=== PATIENT | female | born 1940 | race Caucasian/White ===

== ENCOUNTER 2018-07-14 13:21 | Inpatient (IN) ==
[2018-07-14 14:01] LABS: Basophils # (auto) 0.02 K/uL (0-0.2); Basophils % (auto) 0.3 %; Eosinophils # (auto) 0.03 K/uL (0-0.5); Eosinophils % (auto) 0.4 %; Hematocrit (blood only) 40.7 % (37-47); Hemoglobin 13.3 g/dL (12.0-16.0); Immature Granulocytes # (auto) 0.04 K/uL (0.00-0.02); Immature Granulocytes % (auto) 0.5 %; Lymphocytes # (auto) 0.49 K/uL (1.2-3.4); Lymphocytes % (auto) 6.1 %; Mean Corpuscular Hgb Conc 32.7 g/dL (32-36); Mean Corpuscular Volume 101.2 fL (80-100); Mean Platelet Volume 9.9 fL (7.4-10.4); Monocytes # (auto) 0.72 K/uL (0.11-0.59); Neutrophils # (auto) 6.68 K/uL (1.4-6.5); Neutrophils % (auto) 83.7 %; Platelet Count 133 K/uL (130-400); RDW Coefficient of Variation 13.8 % (11.5-14.5); RDW Standard Deviation 50.6 fL (36.4-46.3); Red Blood Count 4.02 M/uL (4.2-5.4); White Blood Count 7.98 K/uL (4.8-10.8)
[2018-07-14 14:11] LABS: Albumin Level 3.5 gm/dl (3.4-5.0); BUN Creatinine Ratio 28.7 (10-20); Calcium 8.7 mg/dl (8.5-10.1); Creatinine Clr Calc Pharmacy 122.5 ml/min
[2018-07-14 14:16] LABS: Bilirubin,Total 0.7 mg/dl (0.1-1); Globulin 3.4 gm/dl (2.5-4.0); Total Protein 6.9 gm/dl (6.4-8.2); Troponin I 0.024 ng/ml (0-0.045)
[2018-07-14 14:23] LABS: INR 1.1 (0.9-1.1); Partial Thromboplastin Time 25.9 Seconds (21.0-31.0); Prothrombin Time 10.9 Seconds (9.0-12.0)
--- NOTE | 2018-07-14 14:26 | XRay Report ---
XR chest 1V portable CLINICAL HISTORY: Shortness of breath COMPARISON STUDY: No previous studies for comparison. FINDINGS: The heart is mildly enlarged. There is aortic tortuosity/ectasia. There is asymmetric inter stitial thickening left greater than right. The findings likely represent either asymmetric edema, or a left lung interstitial inflammatory process. Clinical and radiographic follow-up is recommended.[ IMPRESSION: Asymmetric interstitial thickening left greater than right, likely representing either as ymmetric edema or a left lung interstitial inflammatory process. Clinical and radiographic follow-up is recommended. Electronically signed by: Cresencio Baca M.D. 07/14/2018 2:24 PM
[2018-07-14] MEDS ORDERED: SODIUM CHLORIDE 0.9% 1000ML 1,000 ML IV STA (15:01)
[2018-07-14] MEDS ORDERED: methylPREDNISolone 125 MG/2 ML VIAL IV STA (15:01)
[2018-07-14] MEDS ORDERED: ALBUT/IPRATROP 3MG/0.5MG NEB 3 ML VIAL INH STA (15:01)
[2018-07-14] MEDS ORDERED: LEVOFLOXACIN/D5W 750 MG/150 ML BAG IV STA (15:03)
[2018-07-14] MEDS ORDERED: SODIUM CHLORIDE 0.9% 500 ML IV SCH (15:15)
--- NOTE | 2018-07-14 16:48 | History & Physical Report ---
Addendum entered and electronically signed by HINA Pratt 07/14/18 18:12 : Addendum (Blank) Addendum July 14, 2018 18:11 Patient is a DNR as per my discussion with her. Original Note: Date of Service July 14, 2018 Assessment & Plan (1) Acute on chronic respiratory failure with hypoxia: -Admit to [facility] with telemetry -Patient presenting with 5 weeks of worsening cough and shortness of breath -Upon arrival to the ED, patient was hypoxic on 87% on chronic 2 L -improved with neb and increasing oxygen to 4 L -History of chronic hypoxic respiratory failure on 2 L of oxygen -patient follows with [facility] and etiology of hypoxia is unknown despite extensive workup -CXR today shows interstitial thickening - ? Pneumonitis versus bronchitis -Afebrile, no leukocytosis -S/P neb, Solu-Medrol 125 mg IV, Levaquin 750 mg IV -will continue with [id number] nebulizers, prednisone 40 mg p.o. daily x 5 days, Levaquin 750 mg IV -Gentle IVF -Sputum culture, flutter valve -Low threshold for CT chest and pulmonary consult (2) Diarrhea: -No abdominal pain -Check C. difficile and stool culture (3) Paroxysmal atrial tachycardia: -Rate controlled on diltiazem and metoprolol, both will be continued (4) Hypertension: -BP mildly elevated however patient not take her medications today -Continue diltiazem and metoprolol at home doses and make adjustments as needed (5) Rheumatoid arthritis: -Continue methotrexate and leucovorin (6) Dyslipidemia: -Continue statin (7) GERD (gastroesophageal reflux disease): -Continue PPI (8) DVT prophylaxis: -SQ Lovenox History of Present Illness Chief Complaint: Shortness of Breath Primary Care Provider: Zafar Pearson DO 78-year-old female who presents the ED with chief complaint shortness of breath. Patient reports she was treated for bronchitis before [facility] with antibiotics and steroids. She reports that when she completed those medicines, her symptoms quickly returned and have been progressively getting worse. She reports a productive cough for green/yellow sputum. Shortness of breath has been progressively getting worse to the point where she is short of breath at rest. She denies fevers and chills. She reports that she developed diarrhea last evening. No bright red bleeding per rectum or dark tarry stools. She denies abdominal pain, nausea, vomiting. She reports some midsternal chest pain last evening that is associated with coughing. No exertional chest pain or chest pain at rest. She reports chronic lower extremity edema which is unchanged from baseline. She denies lightheadedness, dizziness, diaphoresis, syncopal events. She has chronic urinary frequency which is unchanged from baseline. In the ED, patient was found to be hypoxic on her chronic 2 L of oxygen 87%. This improved with nebulizer treatment and increasing oxygen to 4 L via nasal cannula. Patient was also given Solu-Medrol 125 mg IV and IV Levaquin. CXR shows interstitial thickening. Allergies Allergy/AdvReac Type Severity Reaction Status Date / Time prochlorperazine Allergy Intermediate HIVES/RASH. Verified 07/14/18 14:18 morphine Allergy Mild Verified 07/14/18 14:18 grass pollen-perennial rye, Allergy Unknown HAY FEVER Verified 07/14/18 14:18 standar tetanus toxoid, adsorbed Allergy Unknown Verified 07/14/18 14:18 Home Medications Home Medications Medication Instructions Recorded Confirmed Type Lactobac #2-Bifido #1-S. therm 1 cap PO DAILY 07/14/18 07/14/18 History [VSL#3] acetaminophen [Tylenol Extra 500 mg PO Q6H PRN 07/14/18 07/14/18 History Strength] albuterol sulfate [Ventolin HFA] 2 puff INHALATION Q6H PRN 07/14/18 07/14/18 History ascorbic acid (vitamin C) [Vitamin 500 mg PO DAILY 07/14/18 07/14/18 History C] atorvastatin 20 mg PO HS 07/14/18 07/14/18 History calcium carbonate-vitamin D3 1 tab PO BID 07/14/18 07/14/18 History [Caltrate 600 + D] dicyclomine 20 mg PO TID 07/14/18 07/14/18 History diltiazem HCl 120 mg PO QAM 07/14/18 07/14/18 History fexofenadine [Angelica Allergy] 180 mg PO DAILY 07/14/18 07/14/18 History folic acid 3 tabs PO DAILY 07/14/18 07/14/18 History furosemide 40 mg PO DAILY PRN 07/14/18 07/14/18 History glucosamine sulfate [Glucosamine] 500 mg PO BID 07/14/18 07/14/18 History hydrocodone-acetaminophen 1 - 2 tabs PO Q6H PRN 07/14/18 07/14/18 History leucovorin calcium 5 mg PO WK 07/14/18 07/14/18 History methotrexate sodium 10 mg PO WK 07/14/18 07/14/18 History metoprolol succinate 50 mg PO BID 07/14/18 07/14/18 History montelukast 10 mg PO HS 07/14/18 07/14/18 History multivitamin 1 tab PO QAM 07/14/18 07/14/18 History omeprazole 40 mg PO QAM 07/14/18 07/14/18 History propylene glycol [Systane Balance] 1 drp OPHTHALMIC (EYE) Q6H PRN 07/14/1807/14 History vitamin E 400 unit PO DAILY 07/14/18 07/14/18 History Past Med/Surg History Medical History Chronic respiratory failure with hypoxia (Chronic) Paroxysmal atrial tachycardia (Chronic) Osteoporosis (Chronic) IBS (irritable bowel syndrome) (Chronic) Dyslipidemia (Chronic) Rheumatoid arthritis (Chronic) GERD (gastroesophageal reflux disease) (Chronic) Osteoarthritis (Chronic) Hypertension (Chronic) Surgical History History of tonsillectomy (Chronic) S/P ANIKA-BSO (Chronic) History of total left knee replacement (Chronic) History of total right knee replacement (Chronic) Social History Current Living Situation: Alone Other Information That Helps Us Care for You: No Feels Safe at Home: Yes Safety Concerns: Feels Safe At This Time Smoking Status: Never smoker Do You Dip or Chew Tobacco: No Hx Alcohol Use: No Hx Substance Use: No Beliefs That Will Affect Care: None Communication Ability: Effective Dental Hygiene Professor Required: No Review of Systems ROS per HPI, all other systems reviewed and negative Physical Exam 2 Vital Signs (Past 24 Hours): Last Vital Signs Temp 36.9 C 07/14/18 13:27 Pulse 86 07/14/18 15:37 Resp 24 07/14/18 15:37 BP 163/70 H 07/14/18 15:37 Pulse Ox 96 07/14/18 15:37 Constitutional: WD/WN, vitals as above no acute distress Eyes: PERRL, conjunctivae normal, anicteric sclerae ENMT: external ear and nose normal, oropharynx normal Respiratory: normal respiratory effort; no respiratory distress Auscultation: + diminished lung sounds and + wheezes (Expiratory) Coarse breath sounds bilaterally Cardiovascular: Rate/Rhythm: regular rate and regular rhythm Vessels: normal peripheral pulses Extremities: + edema (+1-2 BLE) Gastrointestinal (Abdomen): normal bowel sounds, soft, nontender, no hepatosplenomegaly Musculoskeletal: no cyanosis or clubbing, extremities motor strength 5/5 Skin: no rashes, warm and dry Neurologic: PERRL, EOMI, accommodation nl, no face palsy, no dysarthria Psychiatric: A+Ox3, euthymic affect Results & Data Laboratory Results CXR IMPRESSION: Asymmetric interstitial thickening left greater than right, likely representing either asymmetric edema or a left lung interstitial inflammatory process. Clinical and radiographic follow-up is recommended. Supervising Physician Co-Signing Physician Notes Patient is not is an 78-year-old female with history of paroxysmal atrial tachycardia, IBS, dyslipidemia, rheumatoid arthritis, hypertension, chronic hypoxic respiratory failure on 2 L of supplemental oxygen and other problems presents with history of worsening cough with expectoration, dyspnea, generalized weakness and diarrhea. Patient recently completed antibiotic and steroid course without much help. Reports associated chest pain with cough. Chest x-ray showed asymmetric interstitial thickening left greater than right, likely representing either asymmetric edema or a left lung interstitial inflammatory process. She admits to missing her high blood pressure medications today. Denies any hemoptysis or blood in the stools. On exam patient is moderately built, no apparent distress, B/L rhonchi, decreased breath sounds, trace edema. Patient will be started on IV steroids, Abx, bronchodilators, Oxygen support as needed. Consider CT chest and Pulm consult if no improved. Check stool for C.diff. Resume HTN meds for better BP control. I personally reviewed the record. Patient is interviewed and examined at bedside. Patient's care is coordinated with Elizabeth Ewing [employer]. Please refer to the documentation above for details of patient's presentation and for discussion of other issues.
[2018-07-14] MEDS ORDERED: ACETAMINOPHEN 325 MG TAB PO PRN (18:11)
[2018-07-14 18:20] LABS: Influenza A virus by PCR Neg for Influ A (Neg); Influenza B virus by PCR Neg for Influ B (Neg)
[2018-07-14 18:46] LABS: Appearance Urine Clear (Clear); Bacteria Urine Automated Negative (Negative); Bilirubin Urine Negative (Negative); Cast Urine Automated 0 /lpf (0-5); Color Urine Yellow; Epithelial Cell Urine Auto 0-5 /lpf (0-5); Glucose Urine UA Negative (Negative); Ketones Urine Negative (Negative); Leukocyte Esterase Urine Negative (Negative); Nitrite Urine Negative (Negative); Protein Urine Negative (Negative); Specific Gravity Urine 1.005 (1.000-1.030); Urobilinogen Urine Negative (Negative); WBC Urine Automated 0 /hpf (0-5)
[2018-07-14] MEDS: SODIUM CHLORIDE 0.9% 1000ML 1,000 ML IV SCH (19:13)
[2018-07-14] MEDS ORDERED: XOPENEX/ATROVENT 1.25mg/0.5MG NEB COMBO NEB SCH (20:00)
[2018-07-14] MEDS: IPRATROPIUM BROMIDE NEB SOLN 0.02% 2.5 ML VIAL INH SCH (20:10)
[2018-07-14] MEDS: LEVALBUTEROL 1.25MG/0.5ML NEB INH SCH (20:11)
[2018-07-14] MEDS: dilTIAZem HCL 120 MG CAPCR PO SCH (20:37)
[2018-07-14] MEDS: ATORVASTATIN 20 MG TAB PO SCH (20:38)
[2018-07-14] MEDS: MONTELUKAST SODIUM 10 MG TABLET PO SCH (20:38)
[2018-07-14] MEDS: CALCIUM 600MG + VIT D 400 IU TAB PO SCH (20:38)
[2018-07-14] MEDS: DICYCLOMINE HCL 20 MG TAB PO SCH (20:38)
[2018-07-14] MEDS: ENOXAPARIN INJ 40 MG/0.4 ML SYR SQ SCH (20:38)
[2018-07-14] MEDS: METOPROLOL SUCC 50MG EXT REL TAB PO SCH (20:38)
[2018-07-14] MEDS ORDERED: NON-FORMULARY MEDICATION (Glucosamine Sulfate [Glucosamine] 500 MG) PO SCH (21:00)
--- NOTE | 2018-07-14 21:16 | Emergency Department Note ---
Entered by Karen Nam acting as a scribe for ED Provider Note CHIEF COMPLAINT: Shortness of Breath. HISTORY OF PRESENT ILLNESS: The patient is an 78 year old female who presents to the Emergency Room with complaints of worsening shortness of breath for the past 3 weeks. She states around , she was diagnosed with bronchitis. She was treated with antibiotics and Prednisone. Since then, her breathing has never fully returned to normal. She has a cough with "thick yellowish green colored sputum". She is on Oxygen at home and has had to increase to 2L NC. Albuterol has provided minimal relief. She admits to minimal chest pain last night but states it has resolved. She has also experienced diarrhea since last night. She has been nauseous and notes she hasn't eaten solid food in several days. She notes she is on daily Lasix. Pt denies LOC, headache, fevers, chills, diaphoresis, visual changes, neck pain , nausea, vomiting, abdominal pain, back pain, melena, hematochezia, urinary symptoms, numbness, weakness, lymphadenopathy, rash, or other complaints. REVIEW OF SYSTEMS: See HPI for pertinent positives and negatives. A total of ten systems were reviewed and were otherwise negative. PMHx/PSHx: HTN. SOCIAL HISTORY: Patient lives at home. PHYSICAL EXAM: GENERAL: Awake, alert, well-appearing, in no distress HENT: Normocephalic, atraumatic. Oropharynx unremarkable. EYES: Normal conjunctiva. Sclera non-icteric. NECK: Inspection normal. Non-tender. Supple. No nuchal rigidity. FROM. No masses. RESPIRATORY: Crackles on left side. Wheezes bilaterally. No rales. Normal respiratory effort. CARDIAC: Normal rate. Normal rhythm. No murmurs. No rubs. Extremities warm and well perfused. Pulses equal. No JVD. GI: Soft, non-distended. No tenderness to palpation. No rebound or guarding. No masses. RECTAL: Deferred. MUSCULOSKELETAL: Atraumatic. Chest examination reveals no tenderness. The back is symmetrical on inspection without obvious abnormality. There is no CVA tenderness to palpation. No joint edema. LOWER EXTREMITIES: Calves are equal size bilaterally and non-tender. Trace pedal edema. No discoloration. NEURO: Normal sensorium. No sensory or motor deficits noted. SKIN: No rash or jaundice noted. EMERGENCY DEPARTMENT COURSE: 1500: Past medical records reviewed. The patient was evaluated in room C1, and a complete history and physical examination were performed. 1516: I discussed the patients case with HINA Pratt, [facility] Hospitalist. The patient will be further evaluated. MEDICAL DECISION MAKING: Prior records/ancillary studies reviewed. Triage Nursing notes reviewed and agree them. The patient's history was concerning for shortness of breath. Differential diagnosis: Etiologies such as pneumonia, COPD, reactive airway disease, CHF, cardiac ischemia, pulmonary embolism, pneumothorax, musculoskeletal, infections, gastrointestinal, as well as others were entertained. Physical examination: As above. The patient was wheezing. She was requiring supplemental oxygen. ER treatment provided: DuoNeb IV Solu-Medrol IV Levaquin Supplemental oxygen Diagnostic interpretation by me: The electrocardiogram was negative for pathologic change. The labs revealed mild dehydration on chemistry panel. CBC negative. Troponin negative. Imaging studies: Chest x-ray as above. Consultation: A consultation was placed with the hospitalist. The case was discussed and diagnostics were reviewed. The patient was evaluated in the ER for further treatment. IMPRESSION: Shortness of Breath. Pneumonitis. Dehydration. PLAN: Being evaluated by hospitalist. The scribe's documentation has been prepared under my direction and personally reviewed by me in its entirety. I confirm that the note above accurately reflects all work, treatment, procedures, and medical decision making performed by me. 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) Social History Current Living Situation: Alone Other Information That Helps Us Care for You: No Feels Safe at Home: Yes Safety Concerns: Feels Safe At This Time Smoking Status: Never smoker Do You Dip or Chew Tobacco: No Hx Alcohol Use: No Hx Substance Use: No Beliefs That Will Affect Care: None Communication Ability: Effective Histotechnologist Required: No Results & Data Vital Signs Vital Signs - 24 hr 07/14/18 13:26 07/14/18 13:27 07/14/18 13:28 Temperature 36.9 C Temperature Source Oral Sepsis Recent Fever Within 48 Hours No Sepsis New/Unexplained Change in Mental Status No Sepsis Action Taken by Nursing No Action Required Pulse Rate 75 76 76 Pulse Rate [Finger] 76 Pulse Rhythm [Finger] Pulse Strength [Finger] Respiratory Rate 27 H 25 H 34 H Respiratory Effort / Characteristics Non-Labored Spontaneous Respiratory Depth Normal Respiratory Pattern Regular Blood Pressure 181/97 H 181/97 H Blood Pressure [Left Arm] Blood Pressure [Right Arm] 181/97 H Blood Pressure Mean 125 125 Blood Pressure Mean [Left Arm] Blood Pressure Mean [Right Arm] 125 Blood Pressure Position [Left Arm] Blood Pressure Position [Right Arm] Pulse Oximetry 95 87 L 93 Oxygen Delivery Method Nasal Cannula Oxygen Flow Rate 2 07/14/18 13:30 07/14/18 13:38 07/14/18 13:40 Temperature Temperature Source Sepsis Recent Fever Within 48 Hours Sepsis New/Unexplained Change in Mental Status Sepsis Action Taken by Nursing Pulse Rate 73 78 77 Pulse Rate [Finger] Pulse Rhythm [Finger] Pulse Strength [Finger] Respiratory Rate 29 H 22 17 Respiratory Effort / Characteristics Respiratory Depth Respiratory Pattern Blood Pressure 180/95 H Blood Pressure [Left Arm] Blood Pressure [Right Arm] Blood Pressure Mean 123 Blood Pressure Mean [Left Arm] Blood Pressure Mean [Right Arm] Blood Pressure Position [Left Arm] Blood Pressure Position [Right Arm] Pulse Oximetry 95 96 96 Oxygen Delivery Method Oxygen Flow Rate 07/14/18 13:50 07/14/18 14:00 07/14/18 14:01 Temperature Temperature Source Sepsis Recent Fever Within 48 Hours Sepsis New/Unexplained Change in Mental Status Sepsis Action Taken by Nursing Pulse Rate 75 73 71 Pulse Rate [Finger] Pulse Rhythm [Finger] Pulse Strength [Finger] Respiratory Rate 23 22 21 Respiratory Effort / Characteristics Respiratory Depth Respiratory Pattern Blood Pressure 173/99 H Blood Pressure [Left Arm] Blood Pressure [Right Arm] Blood Pressure Mean 123 Blood Pressure Mean [Left Arm] Blood Pressure Mean [Right Arm] Blood Pressure Position [Left Arm] Blood Pressure Position [Right Arm] Pulse Oximetry 96 96 96 Oxygen Delivery Method Oxygen Flow Rate 07/14/18 14:10 07/14/18 14:59 07/14/18 15:00 Temperature Temperature Source Sepsis Recent Fever Within 48 Hours Sepsis New/Unexplained Change in Mental Status Sepsis Action Taken by Nursing Pulse Rate 80 75 80 Pulse Rate [Finger] Pulse Rhythm [Finger] Pulse Strength [Finger] Respiratory Rate 27 H 35 H 31 H Respiratory Effort / Characteristics Respiratory Depth Respiratory Pattern Blood Pressure Blood Pressure [Left Arm] Blood Pressure [Right Arm] Blood Pressure Mean Blood Pressure Mean [Left Arm] Blood Pressure Mean [Right Arm] Blood Pressure Position [Left Arm] Blood Pressure Position [Right Arm] Pulse Oximetry 96 88 L 90 Oxygen Delivery Method Oxygen Flow Rate 07/14/18 15:01 07/14/18 15:10 07/14/18 15:20 Temperature Temperature Source Sepsis Recent Fever Within 48 Hours Sepsis New/Unexplained Change in Mental Status Sepsis Action Taken by Nursing Pulse Rate 76 81 75 Pulse Rate [Finger] Pulse Rhythm [Finger] Pulse Strength [Finger] Respiratory Rate 36 H 21 24 Respiratory Effort / Characteristics Respiratory Depth Respiratory Pattern Blood Pressure 178/87 H Blood Pressure [Left Arm] Blood Pressure [Right Arm] Blood Pressure Mean 117 Blood Pressure Mean [Left Arm] Blood Pressure Mean [Right Arm] Blood Pressure Position [Left Arm] Blood Pressure Position [Right Arm] Pulse Oximetry 95 94 94 Oxygen Delivery Method Oxygen Flow Rate 07/14/18 15:30 07/14/18 15:31 07/14/18 15:37 Temperature Temperature Source Sepsis Recent Fever Within 48 Hours Sepsis New/Unexplained Change in Mental Status Sepsis Action Taken by Nursing Pulse Rate 76 78 Pulse Rate [Finger] 86 Pulse Rhythm [Finger] Pulse Strength [Finger] Respiratory Rate 27 H 28 H 24 Respiratory Effort / Characteristics Respiratory Depth Respiratory Pattern Blood Pressure 163/70 H Blood Pressure [Left Arm] Blood Pressure [Right Arm] 163/70 H Blood Pressure Mean 101 Blood Pressure Mean [Left Arm] Blood Pressure Mean [Right Arm] 101 Blood Pressure Position [Left Arm] Blood Pressure Position [Right Arm] Pulse Oximetry 94 95 96 Oxygen Delivery Method Nasal Cannula Oxygen Flow Rate 4 07/14/18 15:40 07/14/18 15:50 07/14/18 15:56 Temperature Temperature Source Sepsis Recent Fever Within 48 Hours Sepsis New/Unexplained Change in Mental Status Sepsis Action Taken by Nursing Pulse Rate 82 83 Pulse Rate [Finger] Pulse Rhythm [Finger] Pulse Strength [Finger] Respiratory Rate 29 H 23 Respiratory Effort / Characteristics Spontaneous Short of Breath SOB on Exertion Respiratory Depth Normal Respiratory Pattern Regular Blood Pressure Blood Pressure [Left Arm] Blood Pressure [Right Arm] Blood Pressure Mean Blood Pressure Mean [Left Arm] Blood Pressure Mean [Right Arm] Blood Pressure Position [Left Arm] Blood Pressure Position [Right Arm] Pulse Oximetry 96 100 Oxygen Delivery Method Aerosol Mask Oxygen Flow Rate 07/14/18 16:00 07/14/18 16:01 07/14/18 16:10 Temperature Temperature Source Sepsis Recent Fever Within 48 Hours Sepsis New/Unexplained Change in Mental Status Sepsis Action Taken by Nursing Pulse Rate 92 H 89 95 H Pulse Rate [Finger] Pulse Rhythm [Finger] Pulse Strength [Finger] Respiratory Rate 19 16 26 H Respiratory Effort / Characteristics Respiratory Depth Respiratory Pattern Blood Pressure 183/110 H Blood Pressure [Left Arm] Blood Pressure [Right Arm] Blood Pressure Mean 134 Blood Pressure Mean [Left Arm] Blood Pressure Mean [Right Arm] Blood Pressure Position [Left Arm] Blood Pressure Position [Right Arm] Pulse Oximetry 99 100 89 L Oxygen Delivery Method Oxygen Flow Rate 07/14/18 16:20 07/14/18 16:30 07/14/18 16:31 Temperature Temperature Source Sepsis Recent Fever Within 48 Hours Sepsis New/Unexplained Change in Mental Status Sepsis Action Taken by Nursing Pulse Rate 91 H 84 82 Pulse Rate [Finger] Pulse Rhythm [Finger] Pulse Strength [Finger] Respiratory Rate 23 26 H 33 H Respiratory Effort / Characteristics Respiratory Depth Respiratory Pattern Blood Pressure 160/84 H Blood Pressure [Left Arm] Blood Pressure [Right Arm] Blood Pressure Mean 109 Blood Pressure Mean [Left Arm] Blood Pressure Mean [Right Arm] Blood Pressure Position [Left Arm] Blood Pressure Position [Right Arm] Pulse Oximetry 93 73 L 95 Oxygen Delivery Method Oxygen Flow Rate 07/14/18 16:40 07/14/18 16:50 07/14/18 17:00 Temperature Temperature Source Sepsis Recent Fever Within 48 Hours Sepsis New/Unexplained Change in Mental Status Sepsis Action Taken by Nursing Pulse Rate 92 H 87 Pulse Rate [Finger] Pulse Rhythm [Finger] Pulse Strength [Finger] Respiratory Rate 18 25 H Respiratory Effort / Characteristics Respiratory Depth Respiratory Pattern Blood Pressure Blood Pressure [Left Arm] Blood Pressure [Right Arm] Blood Pressure Mean Blood Pressure Mean [Left Arm] Blood Pressure Mean [Right Arm] Blood Pressure Position [Left Arm] Blood Pressure Position [Right Arm] Pulse Oximetry 92 94 94 Oxygen Delivery Method Oxygen Flow Rate 07/14/18 17:10 07/14/18 17:20 07/14/18 17:23 Temperature Temperature Source Sepsis Recent Fever Within 48 Hours Sepsis New/Unexplained Change in Mental Status Sepsis Action Taken by Nursing Pulse Rate 90 84 84 Pulse Rate [Finger] Pulse Rhythm [Finger] Pulse Strength [Finger] Respiratory Rate 18 28 H 28 H Respiratory Effort / Characteristics Respiratory Depth Respiratory Pattern Blood Pressure Blood Pressure [Left Arm] Blood Pressure [Right Arm] Blood Pressure Mean Blood Pressure Mean [Left Arm] Blood Pressure Mean [Right Arm] Blood Pressure Position [Left Arm] Blood Pressure Position [Right Arm] Pulse Oximetry 94 92 92 Oxygen Delivery Method Nasal Cannula Oxygen Flow Rate 4 07/14/18 18:11 07/14/18 19:10 07/14/18 20:11 Temperature 36.6 C 36.6 C Temperature Source Oral Oral Sepsis Recent Fever Within 48 Hours Sepsis New/Unexplained Change in Mental Status Sepsis Action Taken by Nursing Pulse Rate Pulse Rate [Finger] 87 86 84 Pulse Rhythm [Finger] Regular Pulse Strength [Finger] Respiratory Rate 24 20 18 Respiratory Effort / Characteristics Spontaneous Accessory Muscle Use Labored Short of Breath SOB on Exertion Non-Labored Spontaneous Respiratory Depth Respiratory Pattern Regular Blood Pressure Blood Pressure [Left Arm] 187/93 H Blood Pressure [Right Arm] 158/78 H Blood Pressure Mean Blood Pressure Mean [Left Arm] 124 Blood Pressure Mean [Right Arm] 104 Blood Pressure Position [Left Arm] Lying Blood Pressure Position [Right Arm] Lying Pulse Oximetry 92 91 94 Oxygen Delivery Method Nasal Cannula Nasal Cannula Nasal Cannula Oxygen Flow Rate 4 4 4 07/14/18 20:31 Temperature Temperature Source Sepsis Recent Fever Within 48 Hours Sepsis New/Unexplained Change in Mental Status Sepsis Action Taken by Nursing Pulse Rate Pulse Rate [Finger] 108 H Pulse Rhythm [Finger] Regular Pulse Strength [Finger] Normal Respiratory Rate 20 Respiratory Effort / Characteristics Non-Labored Respiratory Depth Normal Respiratory Pattern Regular Blood Pressure Blood Pressure [Left Arm] Blood Pressure [Right Arm] 123/89 Blood Pressure Mean Blood Pressure Mean [Left Arm] Blood Pressure Mean [Right Arm] 100 Blood Pressure Position [Left Arm] Blood Pressure Position [Right Arm] Sitting Pulse Oximetry 93 Oxygen Delivery Method Nasal Cannula Oxygen Flow Rate 4 Home Medications Current Medication List: was personally reviewed by me Laboratory Data Attestation: I reviewed the patient's lab results. Result diagrams: 07/14/18 13:30 07/14/18 13:30 Lab Results 07/14/18 07/14/18 07/14/18 Range/Units 13:30 13:30 13:30 WBC 7.98 (4.8-10.8) K/uL RBC 4.02 L (4.2-5.4) M/uL Hgb 13.3 (12.0-16.0) g/dL Hct 40.7 (37-47) % MCV 101.2 H (80-100) fL MCH 33.1 (25-34) pg MCHC 32.7 (32-36) g/dL RDW Std Deviation 50.6 H (36.4-46.3) fL RDW Coeff of Velia 13.8 (11.5-14.5) % Plt Count 133 (130-400) K/uL MPV 9.9 (7.4-10.4) fL Immature Gran % (Auto) 0.5 % Neut % (Auto) 83.7 % Lymph % (Auto) 6.1 % [place] % (Auto) 9.0 % Eos % (Auto) 0.4 % Baso % (Auto) 0.3 % Immature Gran # (Auto) 0.04 H (0.00-0.02) K/uL Neut # (Auto) 6.68 H (1.4-6.5) K/uL Lymph # (Auto) 0.49 L (1.2-3.4) K/uL [place] # (Auto) 0.72 H (0.11-0.59) K/uL Eos # (Auto) 0.03 (0-0.5) K/uL Baso # (Auto) 0.02 (0-0.2) K/uL PT 10.9 (9.0-12.0) Seconds INR 1.1 (0.9-1.1) APTT 25.9 (21.0-31.0) Seconds PTT Ratio 1.0 Sodium 133 L (136-145) mmol/L Potassium 4.0 (3.5-5.1) mmol/L Chloride 92 L (98-107) mmol/L Carbon Dioxide 33 H (21-32) mmol/L Anion Gap 8.0 (3-11) BUN 11 (7-18) mg/dl Creatinine 0.38 L (0.6-1.2) mg/dl Est Cr Clr Drug Dosing 122.5 ml/min Est GFR ( Amer) 116.0 Est GFR (Non-Af Amer) 100.0 BUN/Creatinine Ratio 28.7 H (10-20) Glucose 92 (70-99) mg/dl Calcium 8.7 (8.5-10.1) mg/dl Total Bilirubin 0.7 (0.1-1) mg/dl AST 24 (15-37) U/L ALT 24 (12-78) U/L Alkaline Phosphatase 71 (45-117) U/L Troponin I 0.024 (0-0.045) ng/ml Total Protein 6.9 (6.4-8.2) gm/dl Albumin 3.5 (3.4-5.0) gm/dl Globulin 3.4 (2.5-4.0) gm/dl Albumin/Globulin Ratio 1.0 (0.9-2) Urine Color Urine Appearance (Clear) Urine pH (4.5-7.5) Ur Specific [place] (1.000-1.030) Urine Protein (Negative) Urine Glucose (UA) (Negative) Urine Ketones (Negative) Urine Blood (Negative) Urine Nitrite (Negative) Urine Bilirubin (Negative) Urine Urobilinogen (Negative) Ur Leukocyte Esterase (Negative) Urine WBC (Auto) (0-5) /hpf Urine RBC (Auto) (0-4) /hpf U Hyaline Cast (Auto) (0-5) /lpf U Epithel Cells (Auto) (0-5) /lpf Urine Bacteria (Auto) (Negative) Influenza Type A (PCR) (Neg) Influenza Type B (PCR) (Neg) 07/14/18 07/14/18 Range/Units 17:30 18:15 WBC (4.8-10.8) K/uL RBC (4.2-5.4) M/uL Hgb (12.0-16.0) g/dL Hct (37-47) % MCV (80-100) fL MCH (25-34) pg MCHC (32-36) g/dL RDW Std Deviation (36.4-46.3) fL RDW Coeff of Velia (11.5-14.5) % Plt Count (130-400) K/uL MPV (7.4-10.4) fL Immature Gran % (Auto) % Neut % (Auto) % Lymph % (Auto) % [place] % (Auto) % Eos % (Auto) % Baso % (Auto) % Immature Gran # (Auto) (0.00-0.02) K/uL Neut # (Auto) (1.4-6.5) K/uL Lymph # (Auto) (1.2-3.4) K/uL [place] # (Auto) (0.11-0.59) K/uL Eos # (Auto) (0-0.5) K/uL Baso # (Auto) (0-0.2) K/uL PT (9.0-12.0) Seconds INR (0.9-1.1) APTT (21.0-31.0) Seconds PTT Ratio Sodium (136-145) mmol/L Potassium (3.5-5.1) mmol/L Chloride (98-107) mmol/L Carbon Dioxide (21-32) mmol/L Anion Gap (3-11) BUN (7-18) mg/dl Creatinine (0.6-1.2) mg/dl Est Cr Clr Drug Dosing ml/min Est GFR ( Amer) Est GFR (Non-Af Amer) BUN/Creatinine Ratio (10-20) Glucose (70-99) mg/dl Calcium (8.5-10.1) mg/dl Total Bilirubin (0.1-1) mg/dl AST (15-37) U/L ALT (12-78) U/L Alkaline Phosphatase (45-117) U/L Troponin I (0-0.045) ng/ml Total Protein (6.4-8.2) gm/dl Albumin (3.4-5.0) gm/dl Globulin (2.5-4.0) gm/dl Albumin/Globulin Ratio (0.9-2) Urine Color Yellow Urine Appearance Clear (Clear) Urine pH 7.0 (4.5-7.5) Ur Specific [place] 1.005 (1.000-1.030) Urine Protein Negative (Negative) Urine Glucose (UA) Negative (Negative) Urine Ketones Negative (Negative) Urine Blood Trace H (Negative) Urine Nitrite Negative (Negative) Urine Bilirubin Negative (Negative) Urine Urobilinogen Negative (Negative) Ur Leukocyte Esterase Negative (Negative) Urine WBC (Auto) 0 (0-5) /hpf Urine RBC (Auto) 0-4 (0-4) /hpf U Hyaline Cast (Auto) 0 (0-5) /lpf U Epithel Cells (Auto) 0-5 (0-5) /lpf Urine Bacteria (Auto) Negative (Negative) Influenza Type A (PCR) Neg for Influ A (Neg) Influenza Type B (PCR) Neg for Influ B (Neg) Administered Medications Atorvastatin Calcium (Lipitor) 20 mg PO HS [facility] Stop: 08/13/18 20:59 Last Admin: 07/14/18 20:38 Dose: 20 mg Dicyclomine HCl (Bentyl) 20 mg PO TID [facility] Stop: 08/13/18 20:59 Last Admin: 07/14/18 20:38 Dose: 20 mg Diltiazem HCl (Cardizem Cd) 120 mg PO QAM [facility] Stop: 08/13/18 19:59 Last Admin: 07/14/18 20:37 Dose: 120 mg Enoxaparin Sodium (Lovenox) 40 mg SQ Q24H [facility] Stop: 08/13/18 21:59 Last Admin: 07/14/18 20:38 Dose: 40 mg Sodium Chloride (Nss 1000ml) 1,000 mls @ 80 mls/hr IV .[id number] [facility] Stop: 08/13/18 18:59 Last Admin: 07/14/18 19:13 Dose: 80 mls/hr Ipratropium Kyburz (Atrovent 0.02% 0.5mg/2.5ml) 0.5 mg INH Q6R [facility] Stop: 08/13/18 19:59 Last Admin: 07/14/18 20:10 Dose: 0.5 mg Levalbuterol HCl (Xopenex 1.25mg/0.5ml Neb) 1.25 mg INH Q6R [facility] Stop: 08/13/18 19:59 Last Admin: 07/14/18 20:11 Dose: 1.25 mg Metoprolol Succinate (Toprol Xl) 50 mg PO BID [facility] Stop: 08/13/18 20:59 Last Admin: 07/14/18 20:38 Dose: 50 mg Montelukast Sodium (Singulair) 10 mg PO HS [facility] Stop: 08/13/18 20:59 Last Admin: 07/14/18 20:38 Dose: 10 mg Multivitamins/Minerals (Caltrate Plus) 1 tab PO BID [facility] Stop: 01/26/19 20:59 Last Admin: 07/14/18 20:38 Dose: 1 tab Discontinued Medications Albuterol (Duoneb) 3 ml INH NOW STA Stop: 07/14/18 15:02 Last Admin: 07/14/18 15:38 Dose: 3 ml Sodium Chloride (Nss) 500 mls @ 999 mls/hr IV .Q31M [facility] Stop: 07/14/18 15:45 Last Infusion: 07/14/18 16:12 Dose: Admin: 07/14/18 15:38 Dose: 999 mls/hr Levofloxacin/Dextrose (Levaquin/D5w) 750 mg in 150 mls @ 100 mls/hr IV NOW STA Stop: 07/14/18 16:32 Last Infusion: 07/14/18 17:12 Dose: 0 mls/hr Admin: 07/14/18 15:39 Dose: 100 mls/hr Methylprednisolone (Solumedrol) 125 mg IV NOW STA Stop: 07/14/18 15:02 Last Admin: 07/14/18 15:38 Dose: 125 mg ECG Data Attestation: I personally reviewed and interpreted this ECG as follows: Indication: SOB/dyspnea Rate (beats per minute): 74 Rhythm: normal sinus Findings: + other (Left anterior fasicular block); no PAC and no PVC Blood Pressure Blood Pressure Findings: Elevated blood pressure Blood Pressure Disposition: further management by hospitalist Discharge Plan Visit Data *Final* Discharge Date/Time: 07/14/18 17:23 Chief Complaint: Shortness of Breath/Dyspnea Stated Complaint: sob ED Provider: Luis David Discharge Problem: Shortness of breath, Pneumonitis, Dehydration Patient Disposition: Admitted As Inpatient Discharge Instructions Interventions: ED Discharge Assessment Last Done: 07/14/18 17:23 The scribe's documentation has been prepared under my direction and personally reviewed by me in its entirety. I confirm that the note above accurately reflects all work, treatment, procedures, and medical decision making performed by me.
[2018-07-14] MEDS: HYDROCODONE/ACETAMOPHEN 5/325MG TAB PO PRN (22:11)
[2018-07-15] MEDS: IPRATROPIUM BROMIDE NEB SOLN 0.02% 2.5 ML VIAL INH SCH ×4 (01:51→18:54)
[2018-07-15] MEDS: LEVALBUTEROL 1.25MG/0.5ML NEB INH SCH ×4 (01:51→18:54)
[2018-07-15 06:53] LABS: Hematocrit (blood only) 39.9 % (37-47); Mean Corpuscular Hgb Conc 32.6 g/dL (32-36); Mean Corpuscular Volume 103.4 fL (80-100); Mean Platelet Volume 9.7 fL (7.4-10.4); Platelet Count 111 K/uL (130-400); RDW Coefficient of Variation 14.1 % (11.5-14.5); RDW Standard Deviation 52.3 fL (36.4-46.3); Red Blood Count 3.86 M/uL (4.2-5.4); White Blood Count 5.65 K/uL (4.8-10.8)
[2018-07-15 07:32] LABS: BUN Creatinine Ratio 25.5 (10-20); Calcium 9.1 mg/dl (8.5-10.1); Creatinine Clr Calc Pharmacy 104.7 ml/min; Est GFR (African American) 111.3; Est GFR (Non-African American) 96.1; Potassium 3.9 mmol/L (3.5-5.1)
[2018-07-15] MEDS: FOLIC ACID 1 MG TAB PO SCH (08:32)
[2018-07-15] MEDS: DICYCLOMINE HCL 20 MG TAB PO SCH ×3 (08:32→20:34)
[2018-07-15] MEDS: PANTOprazole 40 MG TAB PO SCH (08:32)
[2018-07-15] MEDS: dilTIAZem HCL 120 MG CAPCR PO SCH (08:32)
[2018-07-15] MEDS: ASCORBIC ACID 500 MG TAB PO SCH (08:33)
[2018-07-15] MEDS: METOPROLOL SUCC 50MG EXT REL TAB PO SCH ×2 (08:33→20:33)
[2018-07-15] MEDS: CALCIUM 600MG + VIT D 400 IU TAB PO SCH ×2 (08:33→20:34)
[2018-07-15] MEDS: predniSONE 20 MG TAB PO SCH (08:34)
[2018-07-15] MEDS: SODIUM CHLORIDE 0.9% 1000ML 1,000 ML IV SCH ×2 (08:34→20:35)
[2018-07-15] MEDS: LACTOBACILLUS ACIDOPHILUS (FLORANEX) TAB PO SCH (08:34)
[2018-07-15] MEDS: MULTIVITAMIN TAB PO SCH (08:34)
[2018-07-15] MEDS: FEXOFENADINE HCL 180 MG TAB PO SCH (08:34)
[2018-07-15] MEDS: metHOTREXate sodium 2.5 MG TAB PO SCH (08:35)
[2018-07-15] MEDS: TOCOPHERYL, DL-ALPHA 400 UNITS CAP PO SCH (08:35)
[2018-07-15] MEDS: LEVOFLOXACIN/D5W 750 MG/150 ML BAG IV SCH (14:50)
[2018-07-15] MEDS: HYDROCODONE/ACETAMOPHEN 5/325MG TAB PO PRN ×2 (14:50→20:42)
[2018-07-15] MEDS ORDERED: metHOTREXate sodium 2.5 MG TAB PO ONE (18:42)
[2018-07-15] MEDS: ATORVASTATIN 20 MG TAB PO SCH (20:33)
[2018-07-15] MEDS: MONTELUKAST SODIUM 10 MG TABLET PO SCH (20:33)
--- NOTE | 2018-07-15 21:53 | Hospitalist Progress Note ---
Date of Service July 15, 2018 Assessment & Plan (1) Acute on chronic respiratory failure with hypoxia: Chronic hypoxic respiratory failure on home O2 at 2 L/min. Increasing dyspnea date of admission, requiring O2 @ 4 LPM. Apparent lower respiratory tract infection as discussed below. Continue supplemental oxygen, titrate as necessary. Review of clinic records regarding pulmonary evaluation. (2) Lower respiratory tract infection: Bronchitis versus pneumonia. Blood and sputum cultures pending. Clinically improved. Continue levofloxacin. Continue steroids and bronchodilators. (3) Hypertension: Continue metoprolol and diltiazem. (4) GERD (gastroesophageal reflux disease): Continue PPI. (5) DVT prophylaxis: SQ enoxaparin. Ambulate. (6) Discharge planning issues: Anticipated discharge to home. Internal Medicine follow-up with Dr. Pearson. Subjective Recheck for multiple problems. Patient was seen in her room around 1900. Feels a little better. Cough improved, less productive. No fever. Persistent wheezing. Oxygen titrated from 4 L/min to 2 L/min. No chest pain. No nausea or vomiting. No diarrhea. No dysuria. Physical Exam 2 Vital Signs (Past 24 Hours): Last Vital Signs Temp 36.7 C 07/15/18 19:13 Pulse 81 07/15/18 19:15 Resp 20 07/15/18 19:13 BP 145/81 H 07/15/18 19:13 Pulse Ox 92 07/15/18 19:13 Constitutional: no acute distress Respiratory: no respiratory distress Auscultation: + rhonchi and + wheezes Cardiovascular: Rate/Rhythm: regular rate and regular rhythm Heart Sounds: no gallop, no murmur and no cardiac rub Vessels: no JVD Extremities: no calf tenderness and no edema Gastrointestinal (Abdomen): normal bowel sounds, soft, nontender, no hepatosplenomegaly Skin: no rashes, warm and dry Psychiatric: Orientation: alert and oriented x 3 Results & Data Laboratory Results Short CBC 07/15/18 Range/Units 06:32 WBC 5.65 (4.8-10.8) K/uL Hgb 13.0 (12.0-16.0) g/dL Hct 39.9 (37-47) % Plt Count 111 L (130-400) K/uL BMP 07/15/18 06:32 Sodium 139 Potassium 3.9 Chloride 99 Carbon Dioxide 33 H BUN 11 Creatinine 0.43 L Glucose 110 H Calcium 9.1 _ (1) Hypertension Hypertension type: essential hypertension Qualified Code(s): I10 - Essential (primary) hypertension (2) GERD (gastroesophageal reflux disease) Esophagitis presence: without esophagitis Qualified Code(s): K21.9 - Gastro- esophageal reflux disease without esophagitis
[2018-07-15] MEDS: ENOXAPARIN INJ 40 MG/0.4 ML SYR SQ SCH (22:14)
[2018-07-16] MEDS: ZOLPIDEM TARTRATE 5 MG TAB PO PRN ×2 (01:09→23:21)
[2018-07-16] MEDS: IPRATROPIUM BROMIDE NEB SOLN 0.02% 2.5 ML VIAL INH SCH ×4 (01:46→19:19)
[2018-07-16] MEDS: LEVALBUTEROL 1.25MG/0.5ML NEB INH SCH ×4 (01:46→19:19)
[2018-07-16] MEDS: SODIUM CHLORIDE 0.9% 1000ML 1,000 ML IV SCH (07:51)
[2018-07-16] MEDS: predniSONE 20 MG TAB PO SCH (07:51)
[2018-07-16] MEDS: FEXOFENADINE HCL 180 MG TAB PO SCH (07:52)
[2018-07-16] MEDS: TOCOPHERYL, DL-ALPHA 400 UNITS CAP PO SCH (07:52)
[2018-07-16] MEDS: ASCORBIC ACID 500 MG TAB PO SCH (07:52)
[2018-07-16] MEDS: METOPROLOL SUCC 50MG EXT REL TAB PO SCH ×2 (07:52→21:24)
[2018-07-16] MEDS: DICYCLOMINE HCL 20 MG TAB PO SCH ×3 (07:52→21:23)
[2018-07-16] MEDS: PANTOprazole 40 MG TAB PO SCH (07:52)
[2018-07-16] MEDS: LACTOBACILLUS ACIDOPHILUS (FLORANEX) TAB PO SCH (07:52)
[2018-07-16] MEDS: dilTIAZem HCL 120 MG CAPCR PO SCH (07:52)
[2018-07-16] MEDS: CALCIUM 600MG + VIT D 400 IU TAB PO SCH ×2 (07:52→21:24)
[2018-07-16] MEDS: MULTIVITAMIN TAB PO SCH (07:52)
[2018-07-16] MEDS: FOLIC ACID 1 MG TAB PO SCH (07:53)
[2018-07-16] MEDS ORDERED: LEUCOVORIN CALCIUM 5 MG TAB PO SCH (09:00)
[2018-07-16] MEDS: LEVOFLOXACIN/D5W 750 MG/150 ML BAG IV SCH (14:30)
[2018-07-16] MEDS: HYDROCODONE/ACETAMOPHEN 5/325MG TAB PO PRN ×2 (17:45→23:21)
--- NOTE | 2018-07-16 19:05 | Hospitalist Progress Note ---
Date of Service July 16, 2018 Assessment & Plan (1) Acute on chronic respiratory failure with hypoxia: Chronic hypoxic respiratory failure on home O2 at 2 L/min. Increasing dyspnea date of admission, requiring O2 @ 4 LPM. Apparent lower respiratory tract infection as discussed below. Continue supplemental oxygen, titrate as necessary. Review of clinic records regarding pulmonary evaluation. (2) Lower respiratory tract infection: Bronchitis versus pneumonia. Blood and sputum cultures negative so far. Clinically improved. Continue levofloxacin. Continue steroids and bronchodilators. (3) Hypertension: Continue metoprolol and diltiazem. (4) GERD (gastroesophageal reflux disease): Continue PPI. (5) Neurological symptoms: Episode of confusion and difficulty speaking 2 weeks ago. Possible TIA. Consider hypoxia as underlying etiology (was not using portable O2). Check CT head, carotid duplex, echo. Monitor for arrhythmias. (6) DVT prophylaxis: SQ enoxaparin. Ambulate. (7) Discharge planning issues: Anticipated discharge to home. Internal Medicine follow-up with Dr. Pearson. Subjective Recheck for multiple problems. Patient was seen in her room around 1100. Feels a little better. No fever. Cough better. Persistent wheezing. Patient shared that she had an episode of confusion and apparent expressive aphasia about 2 weeks ago. No associated symptoms. She was having lunch with her sister. Was not wearing portable O2. [place] better after she rested and ate some lunch. Symptoms lasted for about 5 min. No recurrence. No chest pain. No nausea or vomiting. No diarrhea. No dysuria. Physical Exam 2 Vital Signs (Past 24 Hours): Last Vital Signs Temp 36.7 C 07/16/18 15:26 Pulse 81 07/16/18 16:00 Resp 20 07/16/18 15:26 BP 136/87 07/16/18 15:26 Pulse Ox 92 07/16/18 15:26 Constitutional: no acute distress Respiratory: no respiratory distress Auscultation: + rhonchi and + wheezes Cardiovascular: Rate/Rhythm: regular rate and regular rhythm Heart Sounds: no gallop, no murmur and no cardiac rub Vessels: no JVD Extremities: no calf tenderness and no edema Gastrointestinal (Abdomen): normal bowel sounds, soft, nontender, no hepatosplenomegaly Musculoskeletal: no cyanosis or clubbing, extremities motor strength 5/5 Skin: no rashes, warm and dry Neurologic: PERRL, EOMI, accommodation nl, no face palsy, no dysarthria Speech / Cognition: no expressive aphasia Psychiatric: Orientation: alert and oriented x 3 _ (1) Hypertension Hypertension type: essential hypertension Qualified Code(s): I10 - Essential (primary) hypertension (2) GERD (gastroesophageal reflux disease) Esophagitis presence: without esophagitis Qualified Code(s): K21.9 - Gastro- esophageal reflux disease without esophagitis
[2018-07-16] MEDS: MONTELUKAST SODIUM 10 MG TABLET PO SCH (21:24)
[2018-07-16] MEDS: ATORVASTATIN 20 MG TAB PO SCH (21:24)
[2018-07-16] MEDS: ENOXAPARIN INJ 40 MG/0.4 ML SYR SQ SCH (21:27)
[2018-07-17] MEDS: IPRATROPIUM BROMIDE NEB SOLN 0.02% 2.5 ML VIAL INH SCH ×4 (01:54→19:17)
[2018-07-17] MEDS: LEVALBUTEROL 1.25MG/0.5ML NEB INH SCH ×4 (01:54→19:17)
[2018-07-17 06:31] LABS: BUN Creatinine Ratio 30.4 (10-20); Calcium 8.3 mg/dl (8.5-10.1); Creatinine Clr Calc Pharmacy 87.9 ml/min; Est GFR (African American) 104.6; Est GFR (Non-African American) 90.2; Potassium 3.6 mmol/L (3.5-5.1)
[2018-07-17] MEDS: FEXOFENADINE HCL 180 MG TAB PO SCH (09:03)
[2018-07-17] MEDS: TOCOPHERYL, DL-ALPHA 400 UNITS CAP PO SCH (09:03)
[2018-07-17] MEDS: MULTIVITAMIN TAB PO SCH (09:03)
[2018-07-17] MEDS: CALCIUM 600MG + VIT D 400 IU TAB PO SCH ×2 (09:03→20:14)
[2018-07-17] MEDS: PANTOprazole 40 MG TAB PO SCH (09:03)
[2018-07-17] MEDS: LACTOBACILLUS ACIDOPHILUS (FLORANEX) TAB PO SCH (09:03)
[2018-07-17] MEDS: METOPROLOL SUCC 50MG EXT REL TAB PO SCH ×2 (09:03→20:14)
[2018-07-17] MEDS: predniSONE 20 MG TAB PO SCH (09:04)
[2018-07-17] MEDS: ASCORBIC ACID 500 MG TAB PO SCH (09:04)
[2018-07-17] MEDS: dilTIAZem HCL 120 MG CAPCR PO SCH (09:04)
[2018-07-17] MEDS: FOLIC ACID 1 MG TAB PO SCH (09:04)
[2018-07-17] MEDS: DICYCLOMINE HCL 20 MG TAB PO SCH ×3 (09:04→20:15)
[2018-07-17] MEDS: HYDROCODONE/ACETAMOPHEN 5/325MG TAB PO PRN ×3 (09:08→23:55)
--- NOTE | 2018-07-17 11:56 | CT Scan Report ---
CT head/brain wo con CLINICAL HISTORY: 78 years-old Female with abnormal speech, possible TIA. Acute strokelike symptoms TECHNIQUE: Multiple axial CT images of the head were obtained without contrast. A dose lowering tech nique was utilized adhering to the principles of ALARA. CT DOSE: 1354.05 mGy.cm COMPARISON: None. FINDINGS: Limited exam secondary to patient movement. No acute intracranial hemorrhage, midline shift, intracra nial mass, hydrocephalus, territorial ischemia or abnormal extra-axial collection. Moderate atrophy. Moderate to extensive white matter hypodensities are suggestive of chronic microvascular ischemic samantha nges. Senescent calcifications of the basal ganglia. Cerebral vascular calcifications noted. 3 mm hyp erdense focus noted in the region of the anterior limb left internal capsule, image 12 series 4. The calvarium is intact. Mastoid air cells and middle ear cavities are clear. Moderate mucosal thick ening of the ethmoid air cells. Hypoplasia of the frontal sinuses. Mild mucosal thickening of the rig ht maxillary sinus. Mild to moderate mucosal thickening of the left maxillary sinus with air-fluid le nolan compatible with acute disease. Soft tissues and orbits are unremarkable. IMPRESSION: 1. No acute intracranial hemorrhage, midline shift or territorial infarct. 2. 3 mm hypodense focus of the anterior limb left internal capsule suggests age-indeterminate lacunar infarction. 3. Atrophy with chronic microvascular ischemic changes. 4. Paranasal sinus disease as above. The above report was generated using voice recognition software. It may contain grammatical, syntax o r spelling errors. Electronically signed by: Gentry Singh M.D. 07/17/2018 11:55 AM
--- NOTE | 2018-07-17 12:27 | Ultrasound Report ---
US carotid doppler BI CLINICAL HISTORY: 78 years-old Female with abnormal speech, possible TIA. Acute strokelike symptoms COMPARISON: CT head of same day TECHNIQUE: Multiple real time sonographic images of the carotid bifurcations were obtained assessing teran scale, color Doppler and spectral wave form appearance FINDINGS: Limited study secondary to patient cooperation. RIGHT CAROTID: The peak systolic velocity within the proximal right ICA is measured at 135 cm/sec. The end diastolic velocity measured 35 cm/sec. The ICA to CCA ratio measured 1.6 which correlates wi th a stenosis of 50-69%. LEFT CAROTID: The peak systolic velocity within the left ICA is measured at 88 cm/sec. The end duggan tolic velocity measured 32 cm/sec. The ICA to CCA ratio measured 1.3 which correlates with a stenosis of 0-50%. There is normal antegrade vertebral flow bilaterally. Extensive calcified plaque formation about the bilateral carotid bulbs and proximal ICAs. IMPRESSION: 1. Extensive calcified plaque about the bilateral carotid bulbs and proximal internal carotid arteri es with peak systolic velocities correlating with 50-69% stenosis on the right and 0-50% stenosis on the left. 2. Normal antegrade vertebral flow bilaterally. The above report was generated using voice recognition software. It may contain grammatical, syntax o r spelling errors. Electronically signed by: Gentry Singh M.D. 07/17/2018 12:26 PM
[2018-07-17] MEDS: guaiFENesin SUGAR FREE 200 MG/10 ML UDC PO SCH ×3 (12:31→20:13)
[2018-07-17] MEDS ORDERED: MICONAZOLE NITRATE POWDER 43 GM EXT PRN (13:33)
[2018-07-17] MEDS: LEVOFLOXACIN/D5W 750 MG/150 ML BAG IV SCH (15:36)
--- NOTE | 2018-07-17 18:04 | Hospitalist Progress Note ---
Date of Service July 17, 2018 Assessment & Plan (1) Acute on chronic respiratory failure with hypoxia: Chronic hypoxic respiratory failure on home O2 at 2 L/min. Increasing dyspnea date of admission, requiring O2 @ 4 LPM. Apparent lower respiratory tract infection as discussed below. Continue supplemental oxygen, titrate as necessary. Review clinic records regarding pulmonary evaluation. (2) Lower respiratory tract infection: Bronchitis versus pneumonia. Blood and sputum cultures negative so far. Clinically improved. CT demonstrated maxillary sinusitis. Change antibiotic coverage to ampicillin / sulbactam to cover upper and lower respiratory tract better. Continue steroids and bronchodilators. (3) Hypertension: Continue metoprolol and diltiazem. (4) GERD (gastroesophageal reflux disease): Continue PPI. (5) Neurological symptoms: Episode of confusion and difficulty speaking 2 weeks ago. Possible TIA. Consider hypoxia as underlying etiology (was not using portable O2 at the time.) . 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 CT head- old lacunar stroke left internal capsule. Carotid duplex- bilateral plaque, 0-50% stenosis left ICA, 50-69% stenosis right ICA. Echo- pending. Start antiplatelet therapy; intolerant of aspirin due to GI upset, so will use clopidogrel. Already on atorvastatin with LDL = 60. Pt does not wish to consider vascular surgery consultation. (6) DVT prophylaxis: SQ enoxaparin. Ambulate. (7) Discharge planning issues: Anticipated discharge to home. Internal Medicine follow-up with Dr. Pearson. Subjective Recheck for multiple problems. Patient was seen in her room around 1100. Gradually improving. No fever. Cough better, but still productive. Persistent wheezing. No chest pain. No nausea or vomiting. No diarrhea. No dysuria. No neuro symptoms. Physical Exam 2 Vital Signs (Past 24 Hours): Last Vital Signs Temp 36.8 C 07/17/18 15:11 Pulse 66 07/17/18 16:00 Resp 20 07/17/18 15:11 BP 147/66 H 07/17/18 15:11 Pulse Ox 90 07/17/18 15:11 Constitutional: no acute distress Respiratory: no respiratory distress Auscultation: + rhonchi and + wheezes (improved) Cardiovascular: Rate/Rhythm: regular rate and regular rhythm Heart Sounds: no gallop, no murmur and no cardiac rub Vessels: no JVD Extremities: no calf tenderness and no edema Gastrointestinal (Abdomen): normal bowel sounds, soft, nontender, no hepatosplenomegaly Musculoskeletal: Extremities: no cyanosis Skin: no rashes, warm and dry Neurologic: PERRL, EOMI, accommodation nl, no face palsy, no dysarthria Speech / Cognition: no expressive aphasia Psychiatric: Orientation: alert and oriented x 3 _ (1) Hypertension Hypertension type: essential hypertension Qualified Code(s): I10 - Essential (primary) hypertension (2) GERD (gastroesophageal reflux disease) Esophagitis presence: without esophagitis Qualified Code(s): K21.9 - Gastro- esophageal reflux disease without esophagitis
[2018-07-17] MEDS ORDERED: SODIUM CHLORIDE 0.65% NA SOLN 45 ML (OCEAN) ONE (18:22)
[2018-07-17] MEDS: AMPICILLIN/SULBACTAM SOD 3,000 MG in 0.9 % SODIUM CHLORIDE 100 ML IV SCH ×2 (18:25→23:55)
[2018-07-17] MEDS: CLOPIDOGREL BISULFATE 75 MG TAB PO SCH (18:25)
[2018-07-17] MEDS: ATORVASTATIN 20 MG TAB PO SCH (20:14)
[2018-07-17] MEDS: MONTELUKAST SODIUM 10 MG TABLET PO SCH (20:15)
[2018-07-17] MEDS: ENOXAPARIN INJ 40 MG/0.4 ML SYR SQ SCH (20:15)
[2018-07-17] MEDS: ZOLPIDEM TARTRATE 5 MG TAB PO PRN (23:55)
[2018-07-18] MEDS: IPRATROPIUM BROMIDE NEB SOLN 0.02% 2.5 ML VIAL INH SCH ×4 (02:07→19:11)
[2018-07-18] MEDS: LEVALBUTEROL 1.25MG/0.5ML NEB INH SCH ×4 (02:07→19:11)
[2018-07-18] MEDS: AMPICILLIN/SULBACTAM SOD 3,000 MG in 0.9 % SODIUM CHLORIDE 100 ML IV SCH ×4 (06:01→23:26)
[2018-07-18 07:18] LABS: Hematocrit (blood only) 43.4 % (37-47); Mean Corpuscular Hgb Conc 32.3 g/dL (32-36); Mean Corpuscular Volume 103.8 fL (80-100); Mean Platelet Volume 9.7 fL (7.4-10.4); Platelet Count 131 K/uL (130-400); RDW Coefficient of Variation 14.1 % (11.5-14.5); RDW Standard Deviation 52.7 fL (36.4-46.3); Red Blood Count 4.18 M/uL (4.2-5.4); White Blood Count 7.03 K/uL (4.8-10.8)
[2018-07-18] MEDS: HYDROCODONE/ACETAMOPHEN 5/325MG TAB PO PRN ×2 (09:23→20:15)
[2018-07-18] MEDS: guaiFENesin SUGAR FREE 200 MG/10 ML UDC PO SCH ×4 (09:23→20:17)
[2018-07-18] MEDS: DICYCLOMINE HCL 20 MG TAB PO SCH ×3 (09:24→20:18)
[2018-07-18] MEDS: PANTOprazole 40 MG TAB PO SCH (09:25)
[2018-07-18] MEDS: CLOPIDOGREL BISULFATE 75 MG TAB PO SCH (09:25)
[2018-07-18] MEDS: FOLIC ACID 1 MG TAB PO SCH (09:26)
[2018-07-18] MEDS: CALCIUM 600MG + VIT D 400 IU TAB PO SCH ×2 (09:26→20:17)
[2018-07-18] MEDS: predniSONE 20 MG TAB PO SCH (09:27)
[2018-07-18] MEDS: TOCOPHERYL, DL-ALPHA 400 UNITS CAP PO SCH (09:27)
[2018-07-18] MEDS: MULTIVITAMIN TAB PO SCH (09:28)
[2018-07-18] MEDS: ASCORBIC ACID 500 MG TAB PO SCH (09:28)
[2018-07-18] MEDS: FEXOFENADINE HCL 180 MG TAB PO SCH (09:28)
[2018-07-18] MEDS: LACTOBACILLUS ACIDOPHILUS (FLORANEX) TAB PO SCH (09:28)
[2018-07-18] MEDS: dilTIAZem HCL 120 MG CAPCR PO SCH (09:28)
[2018-07-18] MEDS: METOPROLOL SUCC 50MG EXT REL TAB PO SCH ×2 (09:29→20:17)
[2018-07-18] MEDS ORDERED: COUGH DROP (SUGAR FREE) LOZ 24 LOZ/1 BOX BUCCAL ONE (09:31)
[2018-07-18] MEDS: ENOXAPARIN INJ 40 MG/0.4 ML SYR SQ SCH (20:16)
[2018-07-18] MEDS: ZOLPIDEM TARTRATE 5 MG TAB PO PRN (20:16)
[2018-07-18] MEDS: ATORVASTATIN 20 MG TAB PO SCH (20:18)
[2018-07-18] MEDS: MONTELUKAST SODIUM 10 MG TABLET PO SCH (20:18)
--- NOTE | 2018-07-18 21:21 | Hospitalist Progress Note ---
Date of Service July 18, 2018 Assessment & Plan (1) Acute on chronic respiratory failure with hypoxia: Chronic hypoxic respiratory failure on home O2 at 2 L/min. Increasing dyspnea and worsening hypoxia date of admission, requiring O2 @ 4 LPM. Apparent lower respiratory tract infection as discussed below. Continue supplemental oxygen, titrate as necessary. Review clinic records regarding pulmonary evaluation. (2) Lower respiratory tract infection: Bronchitis versus pneumonia. Blood and sputum cultures negative so far. Clinically improved. CT demonstrated maxillary sinusitis. Changed antibiotic coverage to ampicillin / sulbactam to cover upper and lower respiratory tract better. Continue steroids and bronchodilators. (3) Hypertension: Continue metoprolol and diltiazem. (4) GERD (gastroesophageal reflux disease): Continue PPI. (5) Neurological symptoms: Episode of confusion and difficulty speaking 2 weeks ago. Possible TIA. Consider hypoxia as underlying etiology (was not using portable O2 at the time.) . ekg monitor- NSR. CT head- old lacunar stroke left internal capsule. Carotid duplex- bilateral plaque, 0-50% stenosis left ICA, 50-69% stenosis right ICA. Echo- no cardiac thrombi, possible PFO. Started antiplatelet therapy with clopidogrel (intolerant of aspirin). Already on atorvastatin with LDL = 60. Pt does not wish to consider vascular surgery consultation. (6) DVT prophylaxis: SQ enoxaparin. Ambulate. (7) Discharge planning issues: Anticipated discharge to home. Internal Medicine follow-up with Dr. Pearson. Subjective Recheck for multiple problems. Patient was seen in her room around 1810. No fever. Cough better. Persistent wheezing. No chest pain. No nausea or vomiting. No diarrhea. No dysuria. No neuro symptoms. Physical Exam 2 Vital Signs (Past 24 Hours): Last Vital Signs Temp 36.4 C L 07/18/18 19:09 Pulse 83 07/18/18 19:11 Resp 16 07/18/18 19:11 BP 148/84 H 07/18/18 19:09 Pulse Ox 95 07/18/18 19:11 Constitutional: no acute distress Respiratory: no respiratory distress Auscultation: + rhonchi (scattered) and + wheezes (diffuse) Cardiovascular: Rate/Rhythm: regular rate and regular rhythm Heart Sounds: no gallop, no murmur and no cardiac rub Vessels: no JVD Extremities: + edema (trace pretibial); no calf tenderness Gastrointestinal (Abdomen): normal bowel sounds, soft, nontender, no hepatosplenomegaly Musculoskeletal: Extremities: no cyanosis Skin: no rashes, warm and dry Neurologic: PERRL, EOMI, accommodation nl, no face palsy, no dysarthria Speech / Cognition: no expressive aphasia Psychiatric: Orientation: alert and oriented x 3 Results & Data Laboratory Results Short CBC 07/18/18 Range/Units 07:00 WBC 7.03 (4.8-10.8) K/uL Hgb 14.0 (12.0-16.0) g/dL Hct 43.4 (37-47) % Plt Count 131 (130-400) K/uL _ (1) Hypertension Hypertension type: essential hypertension Qualified Code(s): I10 - Essential (primary) hypertension (2) GERD (gastroesophageal reflux disease) Esophagitis presence: without esophagitis Qualified Code(s): K21.9 - Gastro- esophageal reflux disease without esophagitis
[2018-07-19] MEDS: IPRATROPIUM BROMIDE NEB SOLN 0.02% 2.5 ML VIAL INH SCH ×4 (02:09→20:25)
[2018-07-19] MEDS: LEVALBUTEROL 1.25MG/0.5ML NEB INH SCH ×4 (02:09→20:26)
[2018-07-19] MEDS: AMPICILLIN/SULBACTAM SOD 3,000 MG in 0.9 % SODIUM CHLORIDE 100 ML IV SCH ×3 (05:34→17:45)
[2018-07-19 06:55] LABS: BUN Creatinine Ratio 35.1 (10-20); Calcium 8.5 mg/dl (8.5-10.1); Creatinine Clr Calc Pharmacy 91.9 ml/min; Est GFR (African American) 105.9; Est GFR (Non-African American) 91.4; Potassium 3.6 mmol/L (3.5-5.1)
[2018-07-19] MEDS: FOLIC ACID 1 MG TAB PO SCH (09:00)
[2018-07-19] MEDS: METOPROLOL SUCC 50MG EXT REL TAB PO SCH ×2 (09:00→21:00)
[2018-07-19] MEDS: ASCORBIC ACID 500 MG TAB PO SCH (09:00)
[2018-07-19] MEDS: predniSONE 20 MG TAB PO SCH (09:00)
[2018-07-19] MEDS: FEXOFENADINE HCL 180 MG TAB PO SCH (09:01)
[2018-07-19] MEDS: CALCIUM 600MG + VIT D 400 IU TAB PO SCH ×2 (09:01→20:59)
[2018-07-19] MEDS: CLOPIDOGREL BISULFATE 75 MG TAB PO SCH (09:01)
[2018-07-19] MEDS: PANTOprazole 40 MG TAB PO SCH (09:01)
[2018-07-19] MEDS: dilTIAZem HCL 120 MG CAPCR PO SCH (09:01)
[2018-07-19] MEDS: DICYCLOMINE HCL 20 MG TAB PO SCH ×3 (09:01→21:00)
[2018-07-19] MEDS: TOCOPHERYL, DL-ALPHA 400 UNITS CAP PO SCH (09:01)
[2018-07-19] MEDS: LACTOBACILLUS ACIDOPHILUS (FLORANEX) TAB PO SCH (09:02)
[2018-07-19] MEDS: MULTIVITAMIN TAB PO SCH (09:02)
[2018-07-19] MEDS: guaiFENesin SUGAR FREE 200 MG/10 ML UDC PO SCH ×4 (09:02→21:01)
[2018-07-19] MEDS: HYDROCODONE/ACETAMOPHEN 5/325MG TAB PO PRN ×2 (14:19→21:05)
[2018-07-19] MEDS: FUROSEMIDE 40 MG TAB PO SCH (17:44)
[2018-07-19] MEDS: ATORVASTATIN 20 MG TAB PO SCH (20:59)
[2018-07-19] MEDS: MONTELUKAST SODIUM 10 MG TABLET PO SCH (20:59)
[2018-07-19] MEDS: ENOXAPARIN INJ 40 MG/0.4 ML SYR SQ SCH (21:01)
--- NOTE | 2018-07-19 21:27 | Hospitalist Progress Note ---
Date of Service July 19, 2018 Assessment & Plan (1) Acute on chronic respiratory failure with hypoxia: Chronic hypoxic respiratory failure on home O2 at 2 L/min. Increasing dyspnea and worsening hypoxia date of admission, requiring O2 @ 4 LPM. Apparent lower respiratory tract infection as discussed below. Continue supplemental oxygen, titrate as necessary. Check 2-step pulse oximetry day of discharge to assess O2 needs. (2) Lower respiratory tract infection: Bronchitis versus pneumonia. Blood and sputum cultures negative so far. Clinically improved. CT demonstrated maxillary sinusitis. Changed antibiotic coverage to ampicillin / sulbactam to cover upper and lower respiratory tract better. Continue steroids and bronchodilators. (3) Hypertension: Continue metoprolol and diltiazem. (4) GERD (gastroesophageal reflux disease): Continue PPI. (5) Neurological symptoms: Episode of confusion and difficulty speaking 2 weeks ago. Possible TIA. Consider hypoxia as underlying etiology (was not using portable O2 at the time.) . 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 CT head- old lacunar stroke left internal capsule. Carotid duplex- bilateral plaque, 0-50% stenosis left ICA, 50-69% stenosis right ICA. Echo- no cardiac thrombi, possible PFO. Started antiplatelet therapy with clopidogrel (intolerant of aspirin). Already on atorvastatin with LDL = 60. Pt does not wish to consider vascular surgery consultation. (6) DVT prophylaxis: SQ enoxaparin. Ambulate. (7) Discharge planning issues: Anticipated discharge to home with services when medically stable. Need to pursue options for portable O2- current tank is too heavy for her to carry when she leaves the house. Internal Medicine follow-up with Dr. Pearson. Outpatient follow-up with Pulmonary Medicine. Subjective Recheck for multiple problems. Patient was seen in her room around 1020. No fever. Persistent cough. Persistent wheezing. No chest pain. No nausea or vomiting. No diarrhea. Chronic urinary urgency and frequency unchanged. No dysuria. No neuro symptoms. Physical Exam 2 Vital Signs (Past 24 Hours): Last Vital Signs Temp 36.7 C 07/19/18 19:40 Pulse 75 07/19/18 20:26 Resp 20 07/19/18 20:26 BP 147/86 H 07/19/18 19:40 Pulse Ox 98 07/19/18 20:26 Constitutional: no acute distress Respiratory: no respiratory distress Auscultation: + rhonchi (scattered) and + wheezes (diffuse) Cardiovascular: Rate/Rhythm: regular rate and regular rhythm Heart Sounds: no gallop, no murmur and no cardiac rub Vessels: no JVD Extremities: + edema (trace pretibial); no calf tenderness Gastrointestinal (Abdomen): normal bowel sounds, soft, nontender, no hepatosplenomegaly Musculoskeletal: Extremities: no cyanosis Skin: no rashes, warm and dry Neurologic: PERRL, EOMI, accommodation nl, no face palsy, no dysarthria Speech / Cognition: no expressive aphasia Psychiatric: Orientation: alert and oriented x 3 Results & Data Laboratory Results [facility] 07/19/18 05:50 Sodium 139 Potassium 3.6 Chloride 99 Carbon Dioxide 36 H BUN 17 Creatinine 0.50 L Glucose 86 Calcium 8.5 _ (1) Hypertension Hypertension type: essential hypertension Qualified Code(s): I10 - Essential (primary) hypertension (2) GERD (gastroesophageal reflux disease) Esophagitis presence: without esophagitis Qualified Code(s): K21.9 - Gastro- esophageal reflux disease without esophagitis
[2018-07-20] MEDS: AMPICILLIN/SULBACTAM SOD 3,000 MG in 0.9 % SODIUM CHLORIDE 100 ML IV SCH ×4 (00:12→17:40)
[2018-07-20] MEDS: ZOLPIDEM TARTRATE 5 MG TAB PO PRN ×2 (01:43→20:47)
[2018-07-20] MEDS: LEVALBUTEROL 1.25MG/0.5ML NEB INH SCH ×4 (01:59→19:22)
[2018-07-20] MEDS: IPRATROPIUM BROMIDE NEB SOLN 0.02% 2.5 ML VIAL INH SCH ×4 (01:59→19:26)
[2018-07-20 07:30] LABS: BUN Creatinine Ratio 33.3 (10-20); Calcium 8.5 mg/dl (8.5-10.1); Creatinine Clr Calc Pharmacy 90.1 ml/min; Est GFR (African American) 104.6; Est GFR (Non-African American) 90.2; Potassium 3.4 mmol/L (3.5-5.1)
[2018-07-20] MEDS: DICYCLOMINE HCL 20 MG TAB PO SCH ×3 (08:11→20:49)
[2018-07-20] MEDS: CLOPIDOGREL BISULFATE 75 MG TAB PO SCH (08:11)
[2018-07-20] MEDS: FOLIC ACID 1 MG TAB PO SCH (08:12)
[2018-07-20] MEDS: guaiFENesin SUGAR FREE 200 MG/10 ML UDC PO SCH ×4 (08:12→20:49)
[2018-07-20] MEDS: MULTIVITAMIN TAB PO SCH (08:12)
[2018-07-20] MEDS: METOPROLOL SUCC 50MG EXT REL TAB PO SCH ×2 (08:12→20:50)
[2018-07-20] MEDS: LACTOBACILLUS ACIDOPHILUS (FLORANEX) TAB PO SCH (08:12)
[2018-07-20] MEDS: PANTOprazole 40 MG TAB PO SCH (08:12)
[2018-07-20] MEDS: dilTIAZem HCL 120 MG CAPCR PO SCH (08:13)
[2018-07-20] MEDS: CALCIUM 600MG + VIT D 400 IU TAB PO SCH ×2 (08:13→20:49)
[2018-07-20] MEDS: ASCORBIC ACID 500 MG TAB PO SCH (08:13)
[2018-07-20] MEDS: FEXOFENADINE HCL 180 MG TAB PO SCH (08:13)
[2018-07-20] MEDS: TOCOPHERYL, DL-ALPHA 400 UNITS CAP PO SCH (08:13)
[2018-07-20] MEDS: FUROSEMIDE 40 MG TAB PO SCH (17:40)
[2018-07-20] MEDS ORDERED: POTASSIUM CHLORIDE 10 MEQ TABCR PO STA (18:23)
--- NOTE | 2018-07-20 18:40 | Hospitalist Progress Note ---
Date of Service July 20, 2018 Assessment & Plan (1) Acute on chronic respiratory failure with hypoxia: Chronic hypoxic respiratory failure on home O2 at 2 L/min. Pneumonia Vs Bronchitis CXR:Asymmetric interstitial thickening left greater than right, likely representing either asymmetric edema or a left lung interstitial inflammatory process Continue supplemental oxygen, titrate as able May need 2 step prior to discharge (2) Lower respiratory tract infection: Bronchitis Vs pneumonia. Blood/ sputum cultures: negative to date CT demonstrated maxillary sinusitis. Continue Unasyn Continue steroids and bronchodilators. (3) Hypertension: Continue metoprolol and diltiazem. (4) GERD (gastroesophageal reflux disease): Continue PPI. (5) Neurological symptoms: Episode of confusion and difficulty speaking 2 weeks ago. Possible TIA. Consider hypoxia as underlying etiology (was not using portable O2 at the time.) . 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 Carotid duplex- bilateral plaque, 0-50% stenosis left ICA, 50-69% stenosis right ICA. Echo reviewed . Started on clopidogrel (intolerant of aspirin). continue atorvastatin Pt does not wish to consider vascular surgery consultation. (6) DVT prophylaxis: SQ Lovenox (7) Discharge planning issues: Anticipated discharge to home with services when medically stable. Need to pursue options for portable O2 Internal Medicine follow-up with Dr. Pearson. Outpatient follow-up with Pulmonary Medicine. Subjective Patient is seen and examined at bedside Cough, dyspnea improving no other complaints Denies chest pain, nausea, abd pain Physical Exam 2 Vital Signs (Past 24 Hours): Last Vital Signs Temp 36.7 C 07/20/18 15:29 Pulse 82 07/20/18 15:29 Resp 18 07/20/18 15:29 BP 145/80 H 07/20/18 15:29 Pulse Ox 94 07/20/18 15:29 Physical Exam: Physical Exam: Vitals signs as noted above General Appearance:Moderately built and nourished, no apparent distress Head: normocephalic, Atraumatic Eyes: normal inspection, EOMI Neck: supple, Trachea midline Respiratory/Chest: Normal breath sounds, scattered rhonchi Cardiovascular: S1, S2, No murmur Abdomen/GI:Soft, Non tender, Bowel sounds present Extremities/Musculoskelatal:normal inspection, +1 edema Neurologic/Psych:AAOX3, grossly no focal neurological deficits Skin: normal color, warm Results & Data Laboratory Results [facility] 07/20/18 06:52 Sodium 139 Potassium 3.4 L Chloride 97 L Carbon Dioxide 39 H BUN 17 Creatinine 0.52 L Glucose 88 Calcium 8.5 _ (1) Hypertension Hypertension type: essential hypertension Qualified Code(s): I10 - Essential (primary) hypertension (2) GERD (gastroesophageal reflux disease) Esophagitis presence: without esophagitis Qualified Code(s): K21.9 - Gastro- esophageal reflux disease without esophagitis
[2018-07-20] MEDS: HYDROCODONE/ACETAMOPHEN 5/325MG TAB PO PRN (20:47)
[2018-07-20] MEDS: ATORVASTATIN 20 MG TAB PO SCH (20:49)
[2018-07-20] MEDS: ENOXAPARIN INJ 40 MG/0.4 ML SYR SQ SCH (20:50)
[2018-07-20] MEDS: MONTELUKAST SODIUM 10 MG TABLET PO SCH (20:51)
[2018-07-21] MEDS: AMPICILLIN/SULBACTAM SOD 3,000 MG in 0.9 % SODIUM CHLORIDE 100 ML IV SCH ×4 (00:25→17:29)
[2018-07-21] MEDS: LEVALBUTEROL 1.25MG/0.5ML NEB INH SCH ×4 (01:38→20:16)
[2018-07-21] MEDS: IPRATROPIUM BROMIDE NEB SOLN 0.02% 2.5 ML VIAL INH SCH ×4 (01:38→20:16)
[2018-07-21 07:41] LABS: BUN Creatinine Ratio 31.7 (10-20); Calcium 8.9 mg/dl (8.5-10.1); Creatinine Clr Calc Pharmacy 83.7 ml/min; Est GFR (African American) 102.1; Est GFR (Non-African American) 88.1; Potassium 4.1 mmol/L (3.5-5.1)
[2018-07-21] MEDS: dilTIAZem HCL 120 MG CAPCR PO SCH (08:09)
[2018-07-21] MEDS: guaiFENesin SUGAR FREE 200 MG/10 ML UDC PO SCH ×4 (08:09→21:46)
[2018-07-21] MEDS: FEXOFENADINE HCL 180 MG TAB PO SCH (08:09)
[2018-07-21] MEDS: TOCOPHERYL, DL-ALPHA 400 UNITS CAP PO SCH (08:09)
[2018-07-21] MEDS: FOLIC ACID 1 MG TAB PO SCH (08:10)
[2018-07-21] MEDS: LACTOBACILLUS ACIDOPHILUS (FLORANEX) TAB PO SCH (08:10)
[2018-07-21] MEDS: ASCORBIC ACID 500 MG TAB PO SCH (08:11)
[2018-07-21] MEDS: CALCIUM 600MG + VIT D 400 IU TAB PO SCH ×2 (08:11→21:45)
[2018-07-21] MEDS: CLOPIDOGREL BISULFATE 75 MG TAB PO SCH (08:11)
[2018-07-21] MEDS: DICYCLOMINE HCL 20 MG TAB PO SCH ×3 (08:11→21:45)
[2018-07-21] MEDS: PANTOprazole 40 MG TAB PO SCH (08:12)
[2018-07-21] MEDS: METOPROLOL SUCC 50MG EXT REL TAB PO SCH ×2 (08:12→21:45)
[2018-07-21] MEDS: MULTIVITAMIN TAB PO SCH (08:12)
[2018-07-21] MEDS: HYDROCODONE/ACETAMOPHEN 5/325MG TAB PO PRN ×2 (11:33→21:43)
[2018-07-21] MEDS: FUROSEMIDE 40 MG TAB PO SCH (17:20)
--- NOTE | 2018-07-21 19:18 | Hospitalist Progress Note ---
Date of Service July 21, 2018 Assessment & Plan (1) Acute on chronic respiratory failure with hypoxia: Chronic hypoxic respiratory failure on home O2 at 2 L/min. Pneumonia Vs Bronchitis CXR:Asymmetric interstitial thickening left greater than right, likely representing either asymmetric edema or a left lung interstitial inflammatory process Continue supplemental oxygen, titrate as able Continue current management (2) Lower respiratory tract infection: Bronchitis Vs pneumonia. Blood/ sputum cultures: negative to date CT demonstrated maxillary sinusitis. Continue Unasyn for now Continue bronchodilators. Plan to switch to Augmentin upon discharge (3) Hypertension: BP labile Continue metoprolol and diltiazem. (4) GERD (gastroesophageal reflux disease): Continue PPI. (5) Neurological symptoms: Episode of confusion and difficulty speaking 2 weeks ago. Possible TIA. Consider hypoxia as underlying etiology (was not using portable O2 at the time.) . 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 Carotid duplex- bilateral plaque, 0-50% stenosis left ICA, 50-69% stenosis right ICA. Echo reviewed . Started on clopidogrel (intolerant of aspirin). continue atorvastatin Pt does not wish to consider vascular surgery consultation. (6) DVT prophylaxis: SQ Lovenox (7) Discharge planning issues: Anticipated discharge to home with services when medically stable. Need to pursue options for portable O2 Internal Medicine follow-up with Dr. Pearson. Outpatient follow-up with Pulmonary Medicine. Subjective Patient is seen and examined at bedside continues to improve clinically No new complaints Cough, dyspnea improved Denies chest pain, nausea, abd pain Physical Exam 2 Vital Signs (Past 24 Hours): Last Vital Signs Temp 36.7 C 07/21/18 15:00 Pulse 79 07/21/18 16:15 Resp 20 07/21/18 15:00 BP 124/76 07/21/18 15:00 Pulse Ox 91 07/21/18 15:00 Physical Exam: Physical Exam: Vitals signs as noted above General Appearance:Moderately built and nourished, no apparent distress Head: normocephalic, Atraumatic Eyes: normal inspection, EOMI Neck: supple, Trachea midline Respiratory/Chest: Normal breath sounds, CTA Cardiovascular: S1, S2, No murmur Abdomen/GI:Soft, Non tender, Bowel sounds present Extremities/Musculoskelatal:normal inspection, +1 edema Neurologic/Psych:AAOX3, grossly no focal neurological deficits Skin: normal color, warm Results & Data Laboratory Results [facility] 07/21/18 06:47 Sodium 139 Potassium 4.1 D Chloride 97 L Carbon Dioxide 35 H BUN 18 Creatinine 0.56 L Glucose 96 Calcium 8.9 _ (1) Hypertension Hypertension type: essential hypertension Qualified Code(s): I10 - Essential (primary) hypertension (2) GERD (gastroesophageal reflux disease) Esophagitis presence: without esophagitis Qualified Code(s): K21.9 - Gastro- esophageal reflux disease without esophagitis
[2018-07-21] MEDS: ZOLPIDEM TARTRATE 5 MG TAB PO PRN (21:43)
[2018-07-21] MEDS: MONTELUKAST SODIUM 10 MG TABLET PO SCH (21:44)
[2018-07-21] MEDS: ATORVASTATIN 20 MG TAB PO SCH (21:45)
[2018-07-21] MEDS: ENOXAPARIN INJ 40 MG/0.4 ML SYR SQ SCH (21:46)
[2018-07-22] MEDS: AMPICILLIN/SULBACTAM SOD 3,000 MG in 0.9 % SODIUM CHLORIDE 100 ML IV SCH ×3 (00:06→11:30)
[2018-07-22] MEDS: IPRATROPIUM BROMIDE NEB SOLN 0.02% 2.5 ML VIAL INH SCH ×3 (02:07→13:50)
[2018-07-22] MEDS: LEVALBUTEROL 1.25MG/0.5ML NEB INH SCH ×3 (02:08→13:50)
[2018-07-22] MEDS: guaiFENesin SUGAR FREE 200 MG/10 ML UDC PO SCH ×2 (07:25→12:53)
[2018-07-22] MEDS: METOPROLOL SUCC 50MG EXT REL TAB PO SCH (07:26)
[2018-07-22] MEDS: MULTIVITAMIN TAB PO SCH (07:26)
[2018-07-22] MEDS: CLOPIDOGREL BISULFATE 75 MG TAB PO SCH (07:26)
[2018-07-22] MEDS: PANTOprazole 40 MG TAB PO SCH (07:26)
[2018-07-22] MEDS: metHOTREXate sodium 2.5 MG TAB PO SCH (07:26)
[2018-07-22] MEDS: TOCOPHERYL, DL-ALPHA 400 UNITS CAP PO SCH (07:26)
[2018-07-22] MEDS: LACTOBACILLUS ACIDOPHILUS (FLORANEX) TAB PO SCH (07:26)
[2018-07-22] MEDS: ASCORBIC ACID 500 MG TAB PO SCH (07:26)
[2018-07-22] MEDS: FOLIC ACID 1 MG TAB PO SCH (07:27)
[2018-07-22] MEDS: FEXOFENADINE HCL 180 MG TAB PO SCH (07:27)
[2018-07-22] MEDS: DICYCLOMINE HCL 20 MG TAB PO SCH ×2 (07:27→13:45)
[2018-07-22] MEDS: dilTIAZem HCL 120 MG CAPCR PO SCH (07:27)
[2018-07-22] MEDS: CALCIUM 600MG + VIT D 400 IU TAB PO SCH (07:27)
[2018-07-22 09:06] LABS: BUN Creatinine Ratio 28.9 (10-20); Calcium 9.4 mg/dl (8.5-10.1); Creatinine Clr Calc Pharmacy 72.2 ml/min; Est GFR (African American) 98.2; Est GFR (Non-African American) 84.7; Potassium 3.7 mmol/L (3.5-5.1)
[2018-07-22] MEDS: HYDROCODONE/ACETAMOPHEN 5/325MG TAB PO PRN (09:29)
[2018-07-22 11:49] VITALS: BP 110/75; TEMP 97.5
[2018-07-22 13:52] VITALS: O2SAT 94
--- NOTE | 2018-07-22 14:17 | Hospitalist Progress Note ---
Date of Service July 22, 2018 Assessment & Plan (1) Acute on chronic respiratory failure with hypoxia: Chronic hypoxic respiratory failure on home O2 at 2 L/min. Pneumonia Vs Bronchitis CXR:Asymmetric interstitial thickening left greater than right, likely representing either asymmetric edema or a left lung interstitial inflammatory process Continue supplemental oxygen, titrate as able Continue current management (2) Lower respiratory tract infection: Bronchitis Vs pneumonia. Blood/ sputum cultures: negative to date CT demonstrated maxillary sinusitis. Continue Unasyn for now Continue bronchodilators. Plan to switch to Augmentin and discharge home today (3) Hypertension: Stable Continue metoprolol and diltiazem. (4) GERD (gastroesophageal reflux disease): Continue PPI. (5) Neurological symptoms: Episode of confusion and difficulty speaking 2 weeks ago. Possible TIA. Consider hypoxia as underlying etiology (was not using portable O2 at the time.) . 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 Carotid duplex- bilateral plaque, 0-50% stenosis left ICA, 50-69% stenosis right ICA. Echo reviewed . Started on clopidogrel (intolerant of aspirin). continue atorvastatin Pt does not wish to consider vascular surgery consultation. (6) DVT prophylaxis: SQ Lovenox (7) Discharge planning issues: Anticipated discharge to home with services when medically stable. Need to pursue options for portable O2 Internal Medicine follow-up with Dr. Pearson. Outpatient follow-up with Pulmonary Medicine. Subjective Patient is seen and examined at bedside Doing well today Offers no complaints Cough, dyspnea much improved Denies chest pain, nausea, abd pain Eager to get discharged Physical Exam 2 Vital Signs (Past 24 Hours): Last Vital Signs Temp 36.4 C L 07/22/18 11:48 Pulse 84 07/22/18 13:51 Resp 18 07/22/18 13:51 BP 110/75 07/22/18 11:48 Pulse Ox 94 07/22/18 13:51 Physical Exam: Physical Exam: Vitals signs as noted above General Appearance:Moderately built and nourished, no apparent distress Head: normocephalic, Atraumatic Eyes: normal inspection, EOMI Neck: supple, Trachea midline Respiratory/Chest: mild Coarse breath sounds Cardiovascular: S1, S2, No murmur Abdomen/GI:Soft, Non tender, Bowel sounds present Extremities/Musculoskelatal:normal inspection, +1 edema Neurologic/Psych:AAOX3, grossly no focal neurological deficits Skin: normal color, warm Results & Data Laboratory Results [facility] 07/22/18 08:15 Sodium 136 Potassium 3.7 Chloride 94 L Carbon Dioxide 36 H BUN 18 Creatinine 0.63 Glucose 109 H Calcium 9.4 _ (1) Hypertension Hypertension type: essential hypertension Qualified Code(s): I10 - Essential (primary) hypertension (2) GERD (gastroesophageal reflux disease) Esophagitis presence: without esophagitis Qualified Code(s): K21.9 - Gastro- esophageal reflux disease without esophagitis
--- NOTE | 2018-07-22 14:27 | Discharge Summary ---
Date of Service July 22, 2018 Admission HPI Per Admitting Provider 78-year-old female who presents the ED with chief complaint shortness of breath. Patient reports she was treated for bronchitis before Thanksgiving with antibiotics and steroids. She reports that when she completed those medicines, her symptoms quickly returned and have been progressively getting worse. She reports a productive cough for green/yellow sputum. Shortness of breath has been progressively getting worse to the point where she is short of breath at rest. She denies fevers and chills. She reports that she developed diarrhea last evening. No bright red bleeding per rectum or dark tarry stools. She denies abdominal pain, nausea, vomiting. She reports some midsternal chest pain last evening that is associated with coughing. No exertional chest pain or chest pain at rest. She reports chronic lower extremity edema which is unchanged from baseline. She denies lightheadedness, dizziness, diaphoresis, syncopal events. She has chronic urinary frequency which is unchanged from baseline. In the ED, patient was found to be hypoxic on her chronic 2 L of oxygen 87%. This improved with nebulizer treatment and increasing oxygen to 4 L via nasal cannula. Patient was also given Solu-Medrol 125 mg IV and IV Levaquin. CXR shows interstitial thickening. Admission Exam Per Admitting Provider Constitutional: WD/WN, vitals as above no acute distress Eyes: PERRL, conjunctivae normal, anicteric sclerae ENMT: external ear and nose normal, oropharynx normal Respiratory: normal respiratory effort; no respiratory distress Auscultation: + diminished lung sounds and + wheezes (Expiratory) Coarse breath sounds bilaterally Cardiovascular: Rate/Rhythm: regular rate and regular rhythm Vessels: normal peripheral pulses Extremities: + edema (+1-2 BLE) Gastrointestinal (Abdomen): normal bowel sounds, soft, nontender, no hepatosplenomegaly Musculoskeletal: no cyanosis or clubbing, extremities motor strength 5/5 Skin: no rashes, warm and dry Neurologic: PERRL, EOMI, accommodation nl, no face palsy, no dysarthria Psychiatric: A+Ox3, euthymic affect Principal Diagnosis Discharge Information Discharge Diagnosis Acute on chronic respiratory failure with hypoxia Complicated Bronchitis Discharge Goals Decrease discomfort,Improve disease control, Improve function Discharge Activity Limitations Resume your previous activity Discharge Data Allergies Allergy/AdvReac Type Severity Reaction Status Date / Time prochlorperazine Allergy Intermediate HIVES/RASH. Verified 07/14/18 14:18 morphine Allergy Mild Verified 07/14/18 14:18 grass pollen-perennial rye, Allergy Unknown HAY FEVER Verified 07/14/18 14:18 standar tetanus toxoid, adsorbed Allergy Unknown Verified 07/14/18 14:18 Consultations 07/20/18 10:41 Consult Case Management - Discharge Planning Routine 07/14/18 15:16 ED Decision to Admit Stat 07/14/18 18:11 Consult Case Management - Discharge Planning Routine Procedures Performed CT head: 1. No acute intracranial hemorrhage, midline shift or territorial infarct. 2. 3 mm hypodense focus of the anterior limb left internal capsule suggests age- indeterminate lacunar infarction. 3. Atrophy with chronic microvascular ischemic changes. 4. Paranasal sinus disease as above. Carotid Doppler: 1. Extensive calcified plaque about the bilateral carotid bulbs and proximal internal carotid arteries with peak systolic velocities correlating with 50-69% stenosis on the right and 0-50% stenosis on the left. 2. Normal antegrade vertebral flow bilaterally. CXR: Asymmetric interstitial thickening left greater than right, likely representing either asymmetric edema or a left lung interstitial inflammatory process. Clinical and radiographic follow-up is recommended. Ordered Studies 07/17/18 11:06 CT head/brain wo con Routine US carotid doppler BI Routine Hospital Course (1) Acute on chronic respiratory failure with hypoxia: Chronic hypoxic respiratory failure on home O2 at 2 L/min. Pneumonia Vs Bronchitis CXR:Asymmetric interstitial thickening left greater than right, likely representing either asymmetric edema or a left lung interstitial inflammatory process Continue supplemental oxygen, titrate as able Continue current management (2) Lower respiratory tract infection: Bronchitis Vs pneumonia. Blood/ sputum cultures: negative to date CT demonstrated maxillary sinusitis. Continue Unasyn for now Continue bronchodilators. Plan to switch to Augmentin and discharge home today (3) Hypertension: Stable Continue metoprolol and diltiazem. (4) GERD (gastroesophageal reflux disease): Continue PPI. (5) Neurological symptoms: Episode of confusion and difficulty speaking 2 weeks ago. Possible TIA. Consider hypoxia as underlying etiology (was not using portable O2 at the time.) . 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 Carotid duplex- bilateral plaque, 0-50% stenosis left ICA, 50-69% stenosis right ICA. Echo reviewed . Started on clopidogrel (intolerant of aspirin). continue atorvastatin Pt does not wish to consider vascular surgery consultation. (6) DVT prophylaxis: SQ Lovenox (7) Discharge planning issues: Anticipated discharge to home with services when medically stable. Need to pursue options for portable O2 Internal Medicine follow-up with Dr. Pearson. Outpatient follow-up with Pulmonary Medicine. Total Time Total Time Spent Total Time Spent (In Minutes): 42 minutes Total Time Includes: Examination of the Patient, Discharge Planning, Medication Reconciliation and Other Discharge Plan Discharge Items Patient Disposition: Home - Home Health Services Reason For Visit: HYPOXIA Discharge Diagnosis: Acute on chronic respiratory failure with hypoxia Complicated Bronchitis Discharge Goals: Decrease discomfort, Improve disease control and Improve function Activity: Resume your previous activity Exercise/Sports: Gradually increase as tolerated Non-emergency contact: Primary Care Provider Call non-emergency contact if: you have any medication questions, your symptoms worsen, your pain is not controlled, your pain is worsening and your pain is unusual for you Diet: Heart Healthy Addtl Provider Instructions: Follow up with your Physician on 07/28/18 at 2:45pm Consider following up with your Neurologist as per recommendations from your Primary Physician Complete the antibiotic course as prescribed Seek immediate medical attention if your symptoms reoccur or worsen Prescriptions: New clopidogrel 75 mg Tablet 75 mg PO DAILY 30 Days Qty: 30 RF: 1 amoxicillin-pot clavulanate [Augmentin] 875-125 mg tablet 1 tab PO BID 4 Days Qty: 8 RF: 0 Continue multivitamin Tablet 1 tab PO QAM RF: 0 furosemide 40 mg tablet 40 mg PO DAILY PRN (Reason: FLUID ACCUMULATION) RF: 0 atorvastatin 20 mg tablet 20 mg PO HS RF: 0 metoprolol succinate 50 mg tablet extended release 24 hr 50 mg PO BID RF: 0 glucosamine sulfate [Glucosamine] 500 mg Tablet 500 mg PO BID RF: 0 omeprazole 40 mg capsule,delayed release(DR/EC) 40 mg PO QAM RF: 0 acetaminophen [Tylenol Extra Strength] 500 mg Tablet 500 mg PO Q6H PRN (Reason: Pain) RF: 0 ascorbic acid (vitamin C) [Vitamin C] 500 mg Tablet 500 mg PO DAILY RF: 0 dicyclomine 20 mg tablet 20 mg PO TID RF: 0 montelukast 10 mg tablet 10 mg PO HS RF: 0 albuterol sulfate 90 mcg/actuation HFA aerosol inhaler 2 puff Inhalation Q6H PRN (Reason: Shortness Of Breath Or Wheezing) RF: 0 vitamin E 400 unit Capsule 400 unit PO DAILY RF: 0 propylene glycol [Systane Balance] 0.6 % Drops 1 drp OPHTHALMIC (EYE) Q6H PRN (Reason: Dry Eye(S)) RF: 0 calcium carbonate-vitamin D3 [Caltrate 600 + D] 600 mg (1,500 mg)-800 unit Tablet,Chewable 1 tab PO BID RF: 0 diltiazem HCl 120 mg capsule,extended release 24hr 120 mg PO QAM RF: 0 hydrocodone-acetaminophen 5-325 mg tablet 1 - 2 tabs PO Q6H PRN (Reason: Pain) RF: 0 fexofenadine [Angelica Allergy] 180 mg Tablet 180 mg PO DAILY RF: 0 methotrexate sodium 2.5 mg Tablet 10 mg PO WK RF: 0 leucovorin calcium 5 mg Tablet 5 mg PO WK RF: 0 folic acid 1 mg Tablet 3 tabs PO DAILY RF: 0 Lactobac #2-Bifido #1-S. therm [VSL#3] 112.5 billion cell Capsule 1 cap PO DAILY RF: 0 Stand-Alone Forms: [facility] Discharge Orders: Discharge Order (Routine); Ordered 07/22/18 Ordered By: Roman Sibley Admission Data Admit Date/Time: 07/14/18 15:37 Attending Provider: Roman Sibley Admit Provider: Roman Sibley Primary Care Provider: Zafar Pearson Other Providers: Roman Sibley ; Luis Saleh Service: Telemetry Other Interventions: Discharge Summary Assessment (RN) Last Done: 07/22/18 14:30 Pending Studies at Discharge: No DC Date/Time DO NOT enter until pt leaves facility: 07/22/18 15:53
[2018-07-22 14:32] VITALS: PULSE 70
== END 2018-07-22 15:53 | disposition home health service (06) | DRG 189 ==
LOC: ED 13:21 → 2N 15:37 → SUATTDRO 15:37 → 2N 17:23 → 2W 07-16 08:35